=== PATIENT | male | born 1950 | race Caucasian/White ===

== ENCOUNTER 2016-04-09 17:17 | Emergency (ER) | payer MEDICARE ==
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
[2016-04-09 19:37] VITALS: BP 164/94
== END 2016-04-09 19:36 | disposition home or self-care (01) ==
LOC: ED 17:17
DX: S01.81XA Laceration without foreign body of other part of head, initial encounter (principal); F10.129 Alcohol abuse with intoxication, unspecified; Y09 Assault by unspecified means; Y92.9 Unspecified place or not applicable; Y99.9 Unspecified external cause status; Z86.73 Personal history of transient ischemic attack (TIA), and cerebral infarction without residual deficits; F17.210 Nicotine dependence, cigarettes, uncomplicated
CPT/HCPCS: 99282

== ENCOUNTER 2016-05-12 08:35 | Observation (INO) | payer MEDICARE ==
[2016-05-12] MEDS ORDERED: Metoclopramide IV* 5 MG/ML 2 ML VIAL IV ONE (09:12)
[2016-05-12] MEDS ORDERED: Pantoprazole IV* 40 MG IV ONE (09:12)
[2016-05-12] MEDS ORDERED: Morphine INJ* 4 MG/ML 1 ML CARPUJECT IV ONE (09:12)
[2016-05-12] MEDS ORDERED: NS 0.9% 1000 ML* 2,000 ML IV ONE ×2 (09:12→11:50)
[2016-05-12] MEDS ORDERED: Magnesium Sulfate 2 GM IV* 2 GM/50 ML BAG IV ONE (09:14)
[2016-05-12] MEDS ORDERED: Thiamine IV* 100 MG, Folic Acid IV* 1 MG, Multiple Vitamin IV ADULT* 10 ML in NS 0.9% 1... IV ONE (09:15)
[2016-05-12] MEDS ORDERED: LORazepam INJ* 2 MG/ML 1 ML VIAL IV PUSH ONE (09:16)
[2016-05-12 09:45] LABS: Urine Bacteria Absent (Absent); Urine Bilirubin Negative (Negative); Urine Glucose Negative (Negative); Urine Nitrite Negative (Negative)
[2016-05-12 09:52] LABS: Hematocrit 44 % (42-52); Hemoglobin 14.6 g/dl (14.0-18.0); Mean Corpuscular HGB Conc 34 g/dl (31-36); Mean Corpuscular Hemoglobin 33 pg (27-31); Mean Corpuscular Volume 99 fL (80-94); Mean Platelet Volume 10 um3 (7.4-10.4); Red Blood Count 4.42 10^6/ul (4.0-5.4); Red Cell Distribution Width 14 % (10.5-15); White Blood Count 14.5 10^3/ul (3.5-10.8)
[2016-05-12 10:08] LABS: ALT 12 U/L (7-52); AST 27 U/L (13-39); Albumin 4.3 g/dL (3.2-5.2); Alkaline Phosphatase 106 U/L (34-104); Amylase 21 U/L (29-103); Anion Gap 17 mmol/L (2-11); BUN/Creatinine Ratio 20.2 (8-20); Blood Urea Nitrogen 18 mg/dL (6-24); C Reactive Protein 1.59 mg/L (< 5.00); CO2 Carbon Dioxide 18 mmol/L (22-32); Chloride 100 mmol/L (101-111); EGFR African American 109.3 (>60); Globulin 2.9 g/dL (2-4); Glucose 95 mg/dL (70-100); Lipase 10 U/L (11.0-82.0); Magnesium 1.6 mg/dL (1.9-2.7); Sodium 135 mmol/L (133-145); Total Protein 7.2 g/dL (6.4-8.9)
[2016-05-12 10:16] LABS: Benzodiazepine Urine Screen None Detected (None Detect)
[2016-05-12 10:41] LABS: Alcohol < 10 mg/dL (<10)
[2016-05-12] MEDS ORDERED: chlordiazePOXIDE CAP* 25 MG PO ONE (11:47)
[2016-05-12] MEDS ORDERED: Diazepam TAB(*) 5 MG PO PRN (11:47)
[2016-05-12] MEDS ORDERED: Ondansetron INJ* 2 MG/ML VIAL IV PRN (11:49)
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
[2016-05-12] MEDS: Gabapentin CAP(*) 300 MG PO SCH ×2 (12:59→20:10)
[2016-05-12] MEDS: Diltiazem CD CAP* 240 MG PO SCH (13:00)
[2016-05-12] MEDS: Heparin VIAL(*) 5000 UNITS/ML VIAL (FIVE THOUSAND) SUBCUT SCH ×2 (13:01→20:11)
--- NOTE | 2016-05-12 13:44 | HP ---
ADMISSION HISTORY AND PHYSICAL: DATE OF ADMISSION: 05/12/16 PRIMARY CARE PROVIDER: RAYO Dykes [facility] PROXY: Evelyn, his partner. CODE STATUS: Full. SOURCE OF INFORMATION: History obtained from interview with the patient and review of past medical history. RELIABILITY: Poor. CHIEF COMPLAINT: Nausea and vomiting. HISTORY OF PRESENT ILLNESS: This is a 66-year-old man with past medical history of alcohol abuse, multiple hospitalizations for alcohol withdrawal, who noticed he was last drinking 6 months prior, stopped without any rehab, and started drinking 3 days again prior to presentation, about a bottle of wine, bottle of peppermint schnapps, and beer per day. His last drink was the day prior to admission. This morning woke up, had nausea and vomiting x2 which was dry heaving associated with palpitations, diaphoresis, and tremors. Noticed decreased appetite over the last 3 days, cannot remember the last thing he eats. He had a fall several days prior, he cannot remember when, with head strike. He noted pain in his stomach and generalized malaise and a worsening headache; therefore, presented to the emergency room. He feels like this was like when he stopped drinking in the past; however, more severe. He denies any previous history of seizures or need for intubations with alcohol withdrawal. When seen by this author, he feels much "improved" since presentation. REVIEW OF SYSTEMS: As per HPI, otherwise all other systems are negative. PAST MEDICAL HISTORY: Alcohol abuse, hypothyroidism, hypertension, anxiety, depression, atrial fibrillation in the setting of detoxification in 2003, history of exploratory laparotomy with findings of gangrenous small bowel related to an internal hernia with total resection of approximately 30 inches of small bowel with primary anastomosis, Dr. Hotron, August 2015. SOCIAL HISTORY: Extensive alcohol, currently one bottle of wine, bottle of peach schnapps and additional beer. Tobacco use, 10 cigarettes a day approximately 40 to 50 years. History of marijuana and cocaine, notes last cocaine several years prior. FAMILY HISTORY: Father and mother with both alcohol abuse. Mother with CAD. ALLERGIES: No known drug allergies. MEDICATIONS: Medications from [place], alprazolam 0.5 mg at bedtime as needed, diltiazem 240 mg every day, folic acid 1 tablet daily, gabapentin 1200 mg 3 times a day, metoprolol succinate 25 mg daily, multivitamin 1 tablet daily, thiamine 100 mg daily. PHYSICAL EXAMINATION VITAL SIGNS: When seen by this author, 162/92, heart rate 91, respiratory rate of 16, 97% on room air. T-max in the emergency room 98.6. GENERAL: Sitting in bed, interactive, pleasant, in no apparent distress. HEENT: Oropharynx is clear. Poor dentition. Moist mucous membranes. Sclerae are anicteric. NECK: Non-elevated JVD. No lymphadenopathy. HEART: S1, S2 with accentuated P2. No murmurs, rubs or gallops. LUNGS: Clear to auscultation. ABDOMEN: Soft, nontender, nondistended. EXTREMITIES: Warm and well perfused without clubbing, cyanosis or edema. SKIN: No notable skin lacerations, wounds, or breakdown. NEUROLOGIC: He is alert and oriented x3. His cranial nerves are intact. LABORATORY DATA: Labs reviewed, notable for lactic acidosis 6.3, white blood cell count 14.5, hemoglobin 14.6, platelets 158. Urine is positive for cannabinoids and negative for alcohol. Data reviewed, chest x-ray pending. ASSESSMENT AND PLAN: This is a 66-year-old man, past medical history of alcohol abuse and multiple detoxifications, returning with nausea and vomiting, palpitations, diaphoresis, and tremors in the setting of stopping heavy drinking. Lactic acidosis, suspicious in the setting of alcohol abuse. Receiving normal saline at this time, bolused 2 additional liters, recheck for resolution. Alcohol withdrawal, suspect etiology of palpitations, diaphoresis and tremors as well as headache. Dosed Librium 50 mg oral now and start WAM protocol with p.o. diazepam. Folic acid and thiamine. Fluids indicated above. Hypertension. Restart diltiazem now, metoprolol to start tomorrow, adjust as necessary. History of atrial fibrillation, currently in normal sinus rhythm. No need for telemetry, only in the setting of withdrawal in 2014, not on anticoagulation, additionally contraindicated in the setting of falls. Recent fall at home with head strike, then headache, check CT head noncontrast. Leukocytosis, suspect in the setting of alcohol abuse, although check chest x- ray PA and lateral in the setting of symptomatology as well as elevated leukocyte esterase. DVT prophylaxis, heparin subcu. CC: RAYO Dykes, at the [facility].* [id number]/CPS #: [id number] [facility]OS[facility]ITALKenyatta
--- NOTE | 2016-05-12 14:27 | RAD ---
HISTORY: Fall, headache COMPARISONS: October 16, 2013 TECHNIQUE: Multiple contiguous axial CT scans were obtained of the head without intravenous contrast. FINDINGS: HEMORRHAGE/INFARCT: There is no hemorrhage or acute infarct. MASSES/SHIFT: There is no mass or shift. EXTRA-AXIAL SPACES: There are no extra-axial fluid collections. SULCI AND VENTRICLES: The sulci and ventricles are normal in size and position for the patient's stated age. CEREBRUM: There is stable right frontal encephalomalacia. BRAINSTEM: There are no focal parenchymal abnormalities. CEREBELLUM: There are no focal parenchymal abnormalities. VESSELS: The vessels are grossly normal. PARANASAL SINUSES: The paranasal sinuses are clear. ORBITS: The orbits are unremarkable. BONES AND SOFT TISSUE: There is postsurgical change to the right frontal skull OTHER: None IMPRESSION: NO ACUTE INTRACRANIAL PATHOLOGY.
[2016-05-12] MEDS ORDERED: Acetaminophen TAB* 325 MG PO PRN (21:45)
[2016-05-13] MEDS: Heparin VIAL(*) 5000 UNITS/ML VIAL (FIVE THOUSAND) SUBCUT SCH (06:05)
[2016-05-13 06:44] LABS: Hematocrit 40 % (42-52); Hemoglobin 13.4 g/dl (14.0-18.0); Mean Corpuscular HGB Conc 34 g/dl (31-36); Mean Corpuscular Hemoglobin 34 pg (27-31); Mean Corpuscular Volume 99 fL (80-94); Mean Platelet Volume 10 um3 (7.4-10.4); Red Blood Count 3.99 10^6/ul (4.0-5.4); Red Cell Distribution Width 14 % (10.5-15); White Blood Count 8.5 10^3/ul (3.5-10.8)
[2016-05-13 06:56] LABS: BUN/Creatinine Ratio 18.8 (8-20); Calcium 8.9 mg/dL (8.6-10.3); EGFR African American 100.2 (>60); EGFR Non-African American 77.9 (>60); Potassium 3.7 mmol/L (3.5-5.0)
[2016-05-13] MEDS: Gabapentin CAP(*) 300 MG PO SCH (07:53)
[2016-05-13] MEDS: Diltiazem CD CAP* 240 MG PO SCH (07:53)
[2016-05-13] MEDS ORDERED: Thiamine TAB* 100 MG TAB PO SCH (09:00)
[2016-05-13] MEDS ORDERED: Multivitamins/Minerals TAB PO SCH (09:00)
[2016-05-13] MEDS ORDERED: Metoprolol Succinate XL TAB* 25 MG PO SCH (09:00)
[2016-05-13] MEDS ORDERED: Folic Acid TAB* 1 MG PO SCH (09:00)
[2016-05-13 09:12] VITALS: BP 132/89
--- NOTE | 2016-05-13 09:22 | DS ---
DISCHARGE SUMMARY: DATE OF ADMISSION: 05/12/16. DATE OF DISCHARGE: 05/13/16. PRIMARY CARE PROVIDER: RAYO Dykes. PRIMARY DIAGNOSES: 1. Lactic acidosis. 2. Alcohol withdrawal. SECONDARY DIAGNOSES: Include: 1. Hypothyroidism. 2. Hypertension. 3. Anxiety. 4. Depression. 5. Peripheral neuropathy. 6. History of atrial fibrillation in the setting of detoxification or alcohol withdrawal. MEDICATIONS ON DISCHARGE: Unchanged from admission. Medication list received from Kristine Hess's office include: 1. Acetaminophen 650 mg every 4 hours as needed for pain or fever. 2. Thiamin 100 mg daily. 3. Multivitamin one tablet daily. 4. Metoprolol succinate 25 mg daily. 5. Gabapentin 1200 mg three times a day. 6. Folic acid 1 mg daily. 7. Diltiazem ER 240 mg daily. 8. Alprazolam 25 mg at bedtime as needed. PERTINENT IMAGING: Brain CT - no acute intracranial pathology. PERTINENT LABORATORY DATA: Lactic acid on presentation 6.3, decreased to 2.4 with volume resuscitation. HISTORY OF PRESENT ILLNESS AND HOSPITAL COURSE: This is a 66-year-old male with a past medical history as outlined in the history of present illness on the day of admission including alcohol abuse and multiple admissions for alcohol withdrawal, presented with symptoms of alcohol withdrawal including nausea, vomiting, tremulousness, palpitations, diaphoresis. He received Ativan in the emergency room as well as Zofran with improvement in his symptoms. He was noted to have lactic acidosis, suspected in the setting of his alcohol use. He was treated with normal saline with resolution of the lactic acidosis. He received Librium in the emergency room and no additional benzodiazepines except for the initial Ativan he received in the emergency room before the day of discharge. His nausea, vomiting resolved; he tolerated a meatloaf dinner on the night prior to discharge. Additionally, he reported a headache in the setting of alcohol withdrawal as well as a fall several days prior. For this reason, he had a CAT scan performed which did not indicate any intracranial pathology in the absence of a bleed. On the day of discharge, the patient felt well. Declining any rehabilitation services as an outpatient. He was counseled at length about alcohol abstinence. There are no complications in the patient's hospital stay. FOLLOWUP INSTRUCTIONS: On followup, please: 1. Evaluate for blood pressure control. 2. Please evaluate for continued alcohol abstinence. 3. No other specific labs or vitals that need followup. Reasons to return to the hospital include, but not limited to recurrent or worsening symptoms including chest pain, shortness of breath, nausea, vomiting, lightheadedness, headache, loss of consciousness, near loss of consciousness, bleeding from any source, inability to obtain or tolerate medications discussed with the patient. He acknowledged understanding. TIME SPENT: Greater than 30 minutes were spent on discharge of this patient with greater than half spent [id number] with the patient. CC: RAYO Dykes at the [place]. * [id number]/[facility] #: [id number] [id number]
== END 2016-05-13 10:10 | disposition home or self-care (01) ==
LOC: ED 08:35 → MED 11:44
PROVIDERS: ADMIT Internal Medicine; ATTEND Internal Medicine
DX: E87.2 Acidosis (principal); F10.239 Alcohol dependence with withdrawal, unspecified; E03.9 Hypothyroidism, unspecified; I10 Essential (primary) hypertension; F32.9 Major depressive disorder, single episode, unspecified; F41.9 Anxiety disorder, unspecified; G62.9 Polyneuropathy, unspecified; R51 Headache; Z91.81 History of falling; Z90.49 Acquired absence of other specified parts of digestive tract; Z98.0 Intestinal bypass and anastomosis status; F17.210 Nicotine dependence, cigarettes, uncomplicated; Z86.73 Personal history of transient ischemic attack (TIA), and cerebral infarction without residual deficits; F43.10 Post-traumatic stress disorder, unspecified
CPT/HCPCS: 36415; 70450; 80048; 80053; 80307; 80320; 81003; 81015; 82150; 83605; 83690; 83735; 85025; 85610; 86140; 93005; 96365; 96366; 99284; A9270-GY; G0378; G0480; J1644; J2060; J2405; J2765; J3411; J3475

== ENCOUNTER 2016-06-11 13:57 | Inpatient (IN) | payer MEDICARE ==
[2016-06-11] MEDS ORDERED: Thiamine IV* 100 MG, Folic Acid IV* 1 MG, Multiple Vitamin IV ADULT* 10 ML, Magnesium S... IV ONE ×5 (14:33)
[2016-06-11 15:00] LABS: Hematocrit 50 % (42-52); Mean Corpuscular HGB Conc 34 g/dl (31-36); Mean Corpuscular Hemoglobin 34 pg (27-31); Mean Corpuscular Volume 99 fL (80-94); Mean Platelet Volume 9 um3 (7.4-10.4); Red Blood Count 5.06 10^6/ul (4.0-5.4); Red Cell Distribution Width 14 % (10.5-15); White Blood Count 10.7 10^3/ul (3.5-10.8)
[2016-06-11 15:15] LABS: ALT 16 U/L (7-52); AST 29 U/L (13-39); Albumin 4.6 g/dL (3.2-5.2); Alkaline Phosphatase 109 U/L (34-104); BUN/Creatinine Ratio 11.6 (8-20); Blood Urea Nitrogen 10 mg/dL (6-24); CO2 Carbon Dioxide 28 mmol/L (22-32); Calcium 9.5 mg/dL (8.6-10.3); EGFR African American 113.7 (>60); EGFR Non-African American 88.4 (>60); Globulin 3.2 g/dL (2-4); Glucose 91 mg/dL (70-100); Total Protein 7.8 g/dL (6.4-8.9)
[2016-06-11 15:32] LABS: Anion Gap 11 mmol/L (2-11); Chloride 101 mmol/L (101-111); Potassium 4.1 mmol/L (3.5-5.0); Sodium 140 mmol/L (133-145)
[2016-06-11 15:45] LABS: Acetaminophen < 15 mcg/mL; Alcohol 275 mg/dL (<10); Salicylate < 2.50 mg/dL (<30)
[2016-06-11 15:55] LABS: TSH (Thyroid Stimulating Horm) 1.52 mcIU/mL (0.34-5.60)
[2016-06-11] MEDS ORDERED: Ondansetron INJ* 2 MG/ML VIAL IV ONE (16:04)
[2016-06-11] MEDS ORDERED: Diltiazem IV* 5 MG/ML 5 ML VIAL (for loading dose/IV Push) (25 MG) IV SLOW PU ONE (16:11)
[2016-06-11] MEDS ORDERED: Diltiazem IV VIAL* 125 MG in D5W 100 ML BAG* 100 ML IV ONE (16:11)
[2016-06-11] MEDS ORDERED: PROCHLORPERAZINE INJ 5 MG/ML 2 ML VIAL IV PRN (17:02)
[2016-06-11] MEDS ORDERED: Acetaminophen TAB* 325 MG PO PRN (17:02)
[2016-06-11 17:30] LABS: Troponin I 0.02 ng/mL (<0.04)
[2016-06-11] MEDS: LORazepam INJ* 2 MG/ML 1 ML VIAL IV SCH (17:37)
[2016-06-11] MEDS ORDERED: Diltiazem IV VIAL* 125 MG in D5W 100 ML BAG* 100 ML IV SCH ×2 (18:00→18:53)
[2016-06-11] MEDS: LORazepam TAB(*) 1 MG PO SCH (18:36)
[2016-06-11] MEDS: NS 0.9% 1000 ML* 1,000 ML IV SCH (19:21)
[2016-06-11] MEDS: Diltiazem IV VIAL* 125 MG in D5W 100 ML BAG* 100 ML IV SCH (19:23)
--- NOTE | 2016-06-11 19:30 | HP ---
CC: Kristine Hess NP, at the [place] HISTORY AND PHYSICAL: DATE OF ADMISSION: 06/11/16 TIME OF EVALUATION: 4:45 p.m. PRIMARY CARE PROVIDER: Kristine Hess NP, at the [place]. CHIEF COMPLAINT: "I need help." HISTORY OF PRESENT ILLNESS: Mr. Brown is a 66-year-old male with a past medical history of alcoh ol abuse, hypothyroidism, hypertension, anxiety, depression, paroxysmal atrial fibrillation who pres ented to the emergency room brought in by EMS requesting detox. The patient states that he is not able to stop drinking and he knows that he needs help, so today, jess catalan drank half a bottle of peach schnapps and then called 911 to come to the emergency room. In the e mergency room, he is able to state that he is currently intoxicated and that he needs help. Throughout his stay in the emergency room, the patient started to complain of palpitations and he wa s found to have developed atrial fibrillation with a rapid ventricular rate with heart rate of 150. He denies chest pain at this time, but he states that he is very anxious and scared of dying if he goes home. He states that he knows he needs to stop drinking, but he always fails. PAST MEDICAL HISTORY: 1. Alcohol abuse. 2. Hypothyroidism. 3. Hypertension. 4. Anxiety. 5. Depression. 6. Paroxysmal atrial fibrillation. 7. Status post exploratory laparotomy with findings of gangrenous small bowel associated with a her haley, requiring 30 inches of resection of small bowel with primary anastomosis in August 2015. MEDICATIONS: 1. Acetaminophen 650 mg p.o. q.4 hours p.r.n. pain or fever. 2. Alprazolam 0.5 mg p.o. at bedtime as needed for anxiety. 3. Cardizem CD 240 mg p.o. daily. 4. Folic acid 1 mg p.o. daily. 5. Gabapentin 1200 mg p.o. t.i.d. 6. Metoprolol succinate 25 mg p.o. daily. 7. Multivitamin 1 tablet p.o. daily. 8. Thiamine 100 mg p.o. daily. The patient states that he is not compliant with his medications and he does not even remember when was the last time he took them all. ALLERGIES: No known drug allergies. FAMILY HISTORY: Father and mother had a history of alcohol abuse. His mother also had coronary art camille disease. SOCIAL HISTORY: The patient has an extensive history of alcohol abuse. He drinks wine, beer, but h is drink of choice is peach schnapps. Although he states that he does not drink daily, he states th at he drinks "most of the days of the week." He is also a smoker, half a pack a day, for 50 years. He also states that he smokes marijuana, but denies any recent use of cocaine or heroin. Surrogate decision maker is his partner, Evelyn Landeros, phone number [phone]. REVIEW OF SYSTEMS: It is limited because the patient still is intoxicated, but as far as I can ques tion him, all of the pertinent positive and negative findings are in the HPI. PHYSICAL EXAMINATION GENERAL: The patient is an elderly male that appears older than stated age, lying in the ER stretch er in no acute distress, but anxious. VITAL SIGNS: Temperature 99.2, heart rate is 139, respiratory rate is 15, oxygen saturation is 99% on room air, blood pressure is 130/79. HEENT: Pupils are equal. Moist mucous membranes. Very poor dentition. CHEST: Breath sounds present bilaterally with no added sounds. CVS: Normal S1, S2. Irregularly irregular. Tachycardic. ABDOMEN: Soft, nontender, nondistended. Bowel sounds present. EXTREMITIES: No edema. NEUROLOGIC: He is alert and oriented x3. Able to move all 4 extremities. LABORATORY AND IMAGING DATA: The patient had a CBC that showed WBC of 10.7, hemoglobin of 17, hammad tocrit of 50, platelets of 181, 72% neutrophils. Chemistry showed a sodium of 140, potassium 4.1, c hloride of 101, bicarb of 28, BUN of 10, creatinine of 0.86, glucose of 91, calcium of 9.5. LFTs ar e normal. TSH is 1.5. Salicylates and acetaminophen are negative and alcohol level is 275. An EKG done on June 11 at 1608 showed atrial fibrillation with heart rate of [address] depressi ons in V4, V5, and V6. This is a change when compared to his prior EKG from 05/01/16. At that time , he was in sinus rhythm. ASSESSMENT AND PLAN: Mr. Brown is a 66-year-old male with a past medical history of alcohol abus e, hypothyroidism, hypertension, anxiety, depression, paroxysmal atrial fibrillation who presents to the emergency room requesting detox and developed atrial fibrillation with rapid ventricular rate. 1. Alcohol withdrawal: Although the patient's alcohol level on ER arrival was 275, the patient sta rted to show signs of withdrawal now with tachycardia and anxiety. He states that he had seizures i n the past when he went through withdrawal, so he will be on a WAM protocol and also on an Ativan ta per. When he is more stable, we are going to request a social work evaluation to help him with detox opti ons. He states that he went to a rehab facility in the [facility] 2 years ago. The patient is g oing to receive thiamine, folate, and multivitamins. 2. Atrial fibrillation with rapid ventricular rate: The patient had episodes in the past and he re cognizes that he is not compliant with his medications. He is going to be admitted to the telemetry floor. He was already started on a Cardizem drip. Pota ssium and TSH are normal. Anticoagulation is contraindicated in the case of this patient with noncompliance and significant al cohol abuse. I think the best plan for him at this time is rate control. 4. Hypertension: Blood pressure is controlled at this time. He is going to be on a Cardizem drip. I am going to continue his metoprolol. 5. DVT prophylaxis: The patient has a score of 2 on DVT Prophylaxis Risk Assessment Guide. He brendan l be started on subcutaneous heparin. 6. Code status is full. TIME SPENT: Approximately 60 minutes were spent with the patient interview, medical records review, physical examination to complete this admission, more than half this time was spent [id number] wi th the patient in coordination of care. [id number]/[facility] #: [id number]
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
[2016-06-11] MEDS: Gabapentin CAP(*) 300 MG PO SCH (20:22)
[2016-06-11] MEDS: Heparin VIAL(*) 5000 UNITS/ML VIAL (FIVE THOUSAND) SUBCUT SCH (21:38)
[2016-06-12] MEDS: LORazepam INJ* 2 MG/ML 1 ML VIAL IV SCH ×3 (01:19→20:33)
[2016-06-12] MEDS: Diltiazem IV VIAL* 125 MG in D5W 100 ML BAG* 100 ML IV SCH (03:32)
[2016-06-12] MEDS: NS 0.9% 1000 ML* 1,000 ML IV SCH ×2 (05:29→15:24)
[2016-06-12] MEDS: Heparin VIAL(*) 5000 UNITS/ML VIAL (FIVE THOUSAND) SUBCUT SCH ×3 (05:29→23:26)
[2016-06-12 06:10] LABS: Hematocrit 40 % (42-52); Hemoglobin 13.8 g/dl (14.0-18.0); Mean Corpuscular HGB Conc 34 g/dl (31-36); Mean Corpuscular Hemoglobin 34 pg (27-31); Mean Corpuscular Volume 99 fL (80-94); Mean Platelet Volume 9 um3 (7.4-10.4); Red Blood Count 4.05 10^6/ul (4.0-5.4); Red Cell Distribution Width 14 % (10.5-15); White Blood Count 9.7 10^3/ul (3.5-10.8)
[2016-06-12 06:24] LABS: BUN/Creatinine Ratio 16.1 (8-20); Calcium 8.7 mg/dL (8.6-10.3); EGFR African American 112.2 (>60); EGFR Non-African American 87.3 (>60); Potassium 3.8 mmol/L (3.5-5.0)
[2016-06-12] MEDS: LORazepam TAB(*) 1 MG PO SCH (08:16)
[2016-06-12] MEDS: Multivitamins/Minerals TAB PO SCH (08:16)
[2016-06-12] MEDS: Folic Acid TAB* 1 MG PO SCH (08:16)
[2016-06-12] MEDS: Metoprolol Succinate XL TAB* 25 MG PO SCH (08:16)
[2016-06-12] MEDS: Diltiazem CD CAP* 240 MG PO SCH ×2 (08:17→08:18)
[2016-06-12] MEDS: Thiamine TAB* 100 MG TAB PO SCH (08:17)
[2016-06-12] MEDS: Gabapentin CAP(*) 300 MG PO SCH ×3 (08:17→20:33)
[2016-06-12] MEDS ORDERED: Diltiazem IV VIAL* 125 MG in D5W 100 ML BAG* 100 ML IV SCH ×2 (08:50→09:20)
[2016-06-12] MEDS ORDERED: Thiamine TAB* 100 MG TAB PO SCH (09:00)
--- NOTE | 2016-06-12 13:49 | PN ---
Subjective Date of Service: 06/12/16 Interval History: HOSPITALIST PROGRESS NOTE Patient seen and examined at bedside. He feels better today, chest pressure is resolved. Less anxious this AM. Family History: Unchanged from Admission Social History: Unchanged from Admission Past Medical History: Unchanged from Admission Objective Active Medications: Acetaminophen (Tylenol Tab*) 650 mg PO Q6H PRN PRN Reason: pain/fever Diltiazem HCl (Cardizem Cd Cap*) 240 mg PO DAILY [facility] Last Admin: 06/12/16 08:18 Dose: Not Given Folic Acid (Folvite Tab*) 1 mg PO DAILY [facility] Last Admin: 06/12/16 08:16 Dose: 1 mg Gabapentin (Neurontin Cap(*)) 1,200 mg PO TID [facility] Last Admin: 06/12/16 08:17 Dose: 1,200 mg Heparin Sodium (Porcine) (Heparin Vial(*)) 5,000 units SUBCUT Q8HR [facility] Last Admin: 06/12/16 05:29 Dose: 5,000 units Sodium Chloride (Ns 0.9% 1000 Ml*) 1,000 mls @ 100 mls/hr IV PER RATE [facility] Last Admin: 06/12/16 05:29 Dose: 100 mls/hr Lorazepam (Ativan Inj*) 1 mg IV Q12H [facility] PRN Reason: Taper Stop: 06/14/16 12:59 Last Admin: 06/12/16 09:32 Dose: 1 mg Lorazepam (Ativan Tab(*)) 0 mg PO .PER WAM SCORE [facility] PRN Reason: Protocol Last Admin: 06/12/16 08:16 Dose: 2 mg Metoprolol Succinate (Toprol Xl Tab*) 25 mg PO DAILY [facility] Last Admin: 06/12/16 08:16 Dose: 25 mg Multivitamins/Minerals (Theragran/Minerals Tab*) 1 tab PO DAILY [facility] Last Admin: 06/12/16 08:16 Dose: 1 tab Prochlorperazine Edisylate (Compazine Inj*) 5 mg IV Q6H PRN PRN Reason: NAUSEA/VOMITING Thiamine HCl (Vitamin B-1 Tab*) 100 mg PO DAILY [facility] Last Admin: 06/12/16 08:17 Dose: 100 mg Vital Signs 06/12/16 06/12/16 06/12/16 11:00 11:35 12:00 Pulse Rate 63 68 84 Respiratory 18 19 22 Rate Blood Pressure 143/82 137/89 (mmHg) O2 Sat by Pulse 96 96 94 Oximetry Oxygen Devices in Use Now: None Appearance: Elderly male lying in bed in NAD. Eyes: No Scleral Icterus Ears/Nose/Mouth/Throat: Mucous Membranes Moist Neck: Trachea Midline Respiratory: Symmetrical Chest Expansion and Respiratory Effort, Clear to Auscultation Cardiovascular: - - Normal S1 and S2, irregularly irregular Abdominal: NL Sounds; No Tenderness; No Distention Extremities: No Edema Neurological: Alert and Oriented x 3, NL Muscle Strength and Tone Lines/Tubes/Other Access: Clean, Dry and Intact Peripheral IV Nutrition: Taking PO's Result Diagrams: 06/12/16 05:38 06/12/16 05:38 Assess/Plan/Problems-Billing Assessment: Mr. Brown is a 66yo M with PMH of ETOH abuse, hypothyroidism, HTN, anxiety, depression, paroxysmal Afib, who presented to ED requesting detox and developed Afib with RVR. - Patient Problems (1) Atrial fibrillation with RVR Comment: - Converted back to NSR earlier today. - Continue PO Cardizem and Metoprolol. (2) Alcohol withdrawal Comment: - Continue WAM protocol. (3) Hypertension Comment: - Controlled. - Continue diltiazem and metoprolol. (4) DVT prophylaxis Comment: - SQ heparin. (5) Full code status Status and Disposition: Inpatient.
[2016-06-13] MEDS: NS 0.9% 1000 ML* 1,000 ML IV SCH (02:46)
[2016-06-13] MEDS: Heparin VIAL(*) 5000 UNITS/ML VIAL (FIVE THOUSAND) SUBCUT SCH ×3 (05:22→22:03)
[2016-06-13] MEDS: Thiamine TAB* 100 MG TAB PO SCH (07:56)
[2016-06-13] MEDS: Multivitamins/Minerals TAB PO SCH (07:56)
[2016-06-13] MEDS: Folic Acid TAB* 1 MG PO SCH (07:56)
[2016-06-13] MEDS: Diltiazem CD CAP* 240 MG PO SCH (07:57)
[2016-06-13] MEDS: Metoprolol Succinate XL TAB* 25 MG PO SCH (07:57)
[2016-06-13] MEDS: Gabapentin CAP(*) 300 MG PO SCH ×3 (07:57→20:46)
[2016-06-13] MEDS: LORazepam INJ* 2 MG/ML 1 ML VIAL IV SCH ×2 (08:15→20:46)
--- NOTE | 2016-06-13 15:33 | PN ---
Subjective Date of Service: 06/13/16 Interval History: HOSPITALIST PROGRESS NOTE Patient seen and examined at bedside. He feels better today. Chest pressure is resolved, denies dyspnea. Family History: Unchanged from Admission Social History: Unchanged from Admission Past Medical History: Unchanged from Admission Objective Active Medications: Acetaminophen (Tylenol Tab*) 650 mg PO Q6H PRN PRN Reason: pain/fever Last Admin: 06/12/16 20:39 Dose: 650 mg Diltiazem HCl (Cardizem Cd Cap*) 240 mg PO DAILY [facility] Last Admin: 06/13/16 07:57 Dose: 240 mg Folic Acid (Folvite Tab*) 1 mg PO DAILY [facility] Last Admin: 06/13/16 07:56 Dose: 1 mg Gabapentin (Neurontin Cap(*)) 1,200 mg PO TID [facility] Last Admin: 06/13/16 13:50 Dose: 1,200 mg Heparin Sodium (Porcine) (Heparin Vial(*)) 5,000 units SUBCUT Q8HR [facility] Last Admin: 06/13/16 13:48 Dose: 5,000 units Lorazepam (Ativan Inj*) 1 mg IV Q12H [facility] PRN Reason: Taper Stop: 06/14/16 12:59 Last Admin: 06/13/16 08:15 Dose: 1 mg Lorazepam (Ativan Tab(*)) 0 mg PO .PER WAM SCORE [facility] PRN Reason: Protocol Last Admin: 06/12/16 08:16 Dose: 2 mg Metoprolol Succinate (Toprol Xl Tab*) 25 mg PO DAILY [facility] Last Admin: 06/13/16 07:57 Dose: 25 mg Multivitamins/Minerals (Theragran/Minerals Tab*) 1 tab PO DAILY [facility] Last Admin: 06/13/16 07:56 Dose: 1 tab Prochlorperazine Edisylate (Compazine Inj*) 5 mg IV Q6H PRN PRN Reason: NAUSEA/VOMITING Thiamine HCl (Vitamin B-1 Tab*) 100 mg PO DAILY [facility] Last Admin: 06/13/16 07:56 Dose: 100 mg Vital Signs 06/13/16 06/13/16 06/13/16 08:15 09:15 11:08 Temperature 98.6 F Pulse Rate 72 Respiratory 18 20 18 Rate Blood Pressure 133/76 (mmHg) O2 Sat by Pulse 99 Oximetry Oxygen Devices in Use Now: None Appearance: Elderly male lying in bed in NAD. Eyes: No Scleral Icterus Ears/Nose/Mouth/Throat: Mucous Membranes Moist Neck: Trachea Midline Respiratory: Symmetrical Chest Expansion and Respiratory Effort, Clear to Auscultation Cardiovascular: RRR - Normal S1 and S2 Abdominal: NL Sounds; No Tenderness; No Distention Extremities: No Edema Neurological: Alert and Oriented x 3, NL Muscle Strength and Tone Lines/Tubes/Other Access: Clean, Dry and Intact Peripheral IV Nutrition: Taking PO's Result Diagrams: 06/12/16 05:38 06/12/16 05:38 Assess/Plan/Problems-Billing Assessment: Mr. Brown is a 66yo M with PMH of ETOH abuse, hypothyroidism, HTN, anxiety, depression, paroxysmal Afib, who presented to ED requesting detox and developed Afib with RVR. - Patient Problems (1) Atrial fibrillation with RVR Comment: - Converted back to NSR. - Continue PO Cardizem and Metoprolol. - Encourage ambulation. (2) Alcohol withdrawal Comment: - Continue WAM protocol but has not scored high enough to receive Ativan. - Not interested in inpatient rehab, but willing to talk to about outpatient resources. (3) Hypertension Comment: - Controlled. - Continue diltiazem and metoprolol. (4) DVT prophylaxis Comment: - SQ heparin. (5) Full code status Status and Disposition: Inpatient. Anticipate d/c in AM.
[2016-06-14] MEDS: Heparin VIAL(*) 5000 UNITS/ML VIAL (FIVE THOUSAND) SUBCUT SCH (05:32)
[2016-06-14 08:45] VITALS: BP 142/88
[2016-06-14] MEDS: Metoprolol Succinate XL TAB* 25 MG PO SCH (09:05)
[2016-06-14] MEDS: Multivitamins/Minerals TAB PO SCH (09:05)
[2016-06-14] MEDS: Diltiazem CD CAP* 240 MG PO SCH (09:05)
[2016-06-14] MEDS: Folic Acid TAB* 1 MG PO SCH (09:05)
[2016-06-14] MEDS: Gabapentin CAP(*) 300 MG PO SCH (09:05)
[2016-06-14] MEDS: Thiamine TAB* 100 MG TAB PO SCH (09:05)
--- NOTE | 2016-06-15 02:00 | DS ---
DISCHARGE SUMMARY: DATE OF ADMISSION: 06/12/16 DATE OF DISCHARGE: 06/14/16 PRIMARY CARE PROVIDER: Kristine Hess NP, at the [facility]. DISCHARGE DIAGNOSES: 1. Alcohol withdrawal. 2. Atrial fibrillation with rapid ventricular rate. SECONDARY DIAGNOSES: 1. Alcohol abuse. 2. Hypothyroidism. 3. Hypertension. 4. Anxiety. 5. Depression. 6. Paroxysmal atrial fibrillation. 7. Status post exploratory laparotomy with findings of gangrenous small bowel associated with hernia, requiring 30 inches of small bowel resection with primary anastomosis in August 2015. 8. Tobacco abuse. MEDICATION LIST: 1. Acetaminophen 650 mg p.o. q.4 hours p.r.n. pain or fever. 2. Alprazolam 0.5 mg p.o. at bedtime as needed for anxiety. 3. Cardizem CD 240 mg p.o. daily. 4. Folic acid 1 mg p.o. daily. 5. Gabapentin 1200 mg p.o. t.i.d. 6. Metoprolol succinate 25 mg p.o. daily. 7. Multivitamin 1 tablet p.o. daily. 8. Thiamine 100 mg p.o. daily. HOSPITAL COURSE: Mr. Brown is a 66-year-old male with past medical history as stated above that presented to the emergency room on 06/12/16 requesting detox and he was found to be in atrial fibrillation with rapid ventricular rate. For more details about his presentation, I refer you to his history and physical. The patient is very clear that he is noncompliant with his medications at home, especially on the days that he drinks more. The patient was admitted to telemetry floor, started on a Cardizem drip, and later on he converted to sinus rhythm. He was on a WAM protocol while in the hospital and also Ativan taper. He was seen in consultation by social work and he is not interested in any inpatient rehab at this time as he wants to be with his significant other, but he did accept information about AA and he plans to follow as outpatient. The patient was felt to be medically stable for discharge. He did have one brief episode of atrial fibrillation prior to discharge before receiving his Cardizem dose, but after receiving the medication, his heart rate went back to sinus with the heart rate in the 70s and he felt well enough to go home. He was advised about the importance of alcohol and tobacco abstinence, but he says that he is not ready to quit smoking at this point that he is going to focus on quitting alcohol first. He was also advised about the importance of compliance with his medications. PHYSICAL EXAMINATION: Vital Signs: Temperature 98.2, heart rate is 70, respiratory rate is 18, oxygen saturation is 97% on room air, and blood pressure is 142/88. General: The patient is an elderly male, lying in bed, in no acute distress. CVS: Normal S1, S2. Regular rate and rhythm. Chest: Breath sounds present bilaterally with no added sounds. Abdomen: Soft. Bowel sounds are present. Extremities: No edema. Neuro: He is alert, awake, and oriented x3. Able to move all 4 extremities. DIET: Heart healthy diet. The patient was advised to avoid caffeine. ACTIVITIES: As tolerated. DISPOSITION: To home. STATUS WHILE IN HOSPITAL: Inpatient. If you need more information, please feel free to call me at or please obtain the full medical records. TIME SPENT: Approximately 45 minutes was spent to complete this discharge. CC: Kristine Hess NP* [id number]/CPS #: [id number] BREANNA
== END 2016-06-14 11:00 | disposition home or self-care (01) | DRG 309 ==
LOC: ED 13:57 → MEDTELE 16:44 → OBSVTOIN 06-12 07:37
PROVIDERS: ADMIT Internal Medicine; ATTEND Internal Medicine
DX: I48.0 Paroxysmal atrial fibrillation (principal); F10.239 Alcohol dependence with withdrawal, unspecified; I10 Essential (primary) hypertension; F12.10 Cannabis abuse, uncomplicated; E03.9 Hypothyroidism, unspecified; F41.9 Anxiety disorder, unspecified; Y90.8 Blood alcohol level of 240 mg/100 ml or more; F32.9 Major depressive disorder, single episode, unspecified; F17.210 Nicotine dependence, cigarettes, uncomplicated
CPT/HCPCS: 36415; 80048; 80053; 80320; 80329; 84443; 84484; 85025; 93005; 99406; A9270-GY; G0378; G0480; J1644; J2060; J2405; J3475; J7060

== ENCOUNTER 2016-10-08 14:29 | Inpatient (IN) | payer MEDICARE ==
[2016-10-08] MEDS ORDERED: Diltiazem IV* 5 MG/ML 5 ML VIAL (for loading dose/IV Push) (25 MG) IV PUSH ONE (14:45)
[2016-10-08] MEDS ORDERED: NS 0.9% 1000 ML* 1,000 ML IV ONE (14:45)
[2016-10-08] MEDS ORDERED: Thiamine IV* 100 MG, Folic Acid IV* 1 MG, Multiple Vitamin IV ADULT* 10 ML in NS 0.9% 1... IV ONE (14:46)
[2016-10-08 14:59] LABS: Hematocrit 47 % (42-52); Hemoglobin 15.9 g/dl (14.0-18.0); Mean Corpuscular HGB Conc 34 g/dl (31-36); Mean Corpuscular Hemoglobin 34 pg (27-31); Mean Corpuscular Volume 102 fL (80-94); Mean Platelet Volume 9 um3 (7.4-10.4); Red Blood Count 4.63 10^6/ul (4.0-5.4); Red Cell Distribution Width 15 % (10.5-15); White Blood Count 6.2 10^3/ul (3.5-10.8)
[2016-10-08 15:14] LABS: Troponin I 0.03 ng/mL (<0.04)
--- NOTE | 2016-10-08 15:15 | RAD ---
INDICATION: Palpitations. COMPARISON: Comparison is made with a prior chest x-ray study from October 31, 2005. TECHNIQUE: A portable view of the chest was obtained. FINDINGS: Cardiac and mediastinal contours appear to be within normal limits. The lungs appear hyperinflated. There is a small nodular density present at the right lung base which is unchanged from the prior study. The lungs are otherwise clear. No pleural effusion is seen. IMPRESSION: NO EVIDENCE FOR ACUTE DISEASE.
[2016-10-08 15:17] LABS: Albumin 4.2 g/dL (3.2-5.2); BUN/Creatinine Ratio 15.6 (8-20); Calcium 8.9 mg/dL (8.6-10.3); EGFR African American 129.2 (>60); EGFR Non-African American 100.5 (>60); Globulin 3.2 g/dL (2-4); Magnesium 1.9 mg/dL (1.9-2.7); Potassium 3.7 mmol/L (3.5-5.0); Total Bilirubin 0.7 mg/dL (0.2-1.0); Total Protein 7.4 g/dL (6.4-8.9)
[2016-10-08 15:39] LABS: TSH (Thyroid Stimulating Horm) 1.31 mcIU/mL (0.34-5.60)
[2016-10-08] MEDS ORDERED: LORazepam INJ* 2 MG/ML 1 ML VIAL IV PUSH ONE (15:43)
[2016-10-08] MEDS ORDERED: Diltiazem CD CAP* 240 MG PO ONE (16:06)
[2016-10-08 16:12] LABS: Urine Bacteria Absent (Absent); Urine Bilirubin Negative (Negative); Urine Glucose Negative (Negative); Urine Nitrite Negative (Negative)
[2016-10-08] MEDS ORDERED: Diltiazem IV* 5 MG/ML 5 ML VIAL (for loading dose/IV Push) (25 MG) IV SLOW PU ONE (18:11)
[2016-10-08] MEDS ORDERED: Acetaminophen TAB* 325 MG PO PRN (18:12)
[2016-10-08] MEDS ORDERED: Diltiazem IV* 5 MG/ML 5 ML VIAL (for loading dose/IV Push) (25 MG) IV PUSH PRN (18:21)
[2016-10-08] MEDS: Gabapentin CAP(*) 300 MG PO SCH (19:57)
[2016-10-08] MEDS: LORazepam INJ* 2 MG/ML 1 ML VIAL IV PUSH SCH ×2 (19:57→22:19)
[2016-10-08] MEDS ORDERED: ALPRAZolam TAB* 0.5 MG PO PRN (21:00)
[2016-10-08] MEDS: Heparin VIAL(*) 5000 UNITS/ML VIAL (FIVE THOUSAND) SUBCUT SCH (21:12)
[2016-10-09] MEDS: NS 0.9% 1000 ML* 1,000 ML IV SCH ×2 (00:19→09:25)
--- NOTE | 2016-10-09 02:42 | HP ---
ADDENDUM NOW INCLUDED ON THIS REPORT CC: Kristine Hess NP* ADMISSION HISTORY AND PHYSICAL: DATE OF ADMISSION: 10/08/16 PRIMARY CARE PROVIDER: Kristine Hess NP ADMITTING PROVIDER: SIOMARA Madrid. SUPERVISING PHYSICIAN: Jacinot Thomas MD * (DICTATED BY SIOMARA MADRID) CHIEF COMPLAINT: Alcohol abuse. HISTORY OF PRESENT ILLNESS: This is a 66-year-old male with a long history of alcoholism as well as atrial fibrillation who presented to the emergency department at the prompting of his girlfriend for help with his alcoholism. The patient has gone on a recent binge mostly over the last couple of days and reports drinking "nonstop" with peppermint schnapps being his drink of choice. Apparently, his girlfriend became upset with him and requested that he seek care in the hospital for his use. When he reached the emergency department, he was noted to be in atrial fibrillation with a rapid ventricular rate in 160s on initial vitals. Hospitalist group was subsequently asked to evaluate for admission. The patient he has feelings of palpitations and is mildly nauseated and overall feels "miserable." He states that his last alcoholic beverage was this morning. He states that he has undergone alcohol withdrawal in the past, has never experienced seizures or other severe symptoms previously. He has been hospitalized for his withdrawal symptoms, previously. The patient is unsure of exactly what he would like to do in terms of treatment for his alcoholism. He is in agreement with treatment for his withdrawal and thinks that the best mode of treatment would be to have one on one counseling. He is not interested in pursuing any group therapy or inpatient rehab options. The patient also notes that he has lost weight recently. He states that his lifelong weight has been about 165 pounds. He believes that he has lost about 20 pounds, but is unsure of over what timeframe. He states that his appetite has been somewhat poor, blaming it on early satiety, but no associated abdominal pain, nausea or vomiting. He states that he thinks his primary care provider knows about this, but is unsure if he has had any prior testing. He is concerned about his weight loss today. PAST MEDICAL HISTORY: 1. Alcoholism. 2. Atrial fibrillation. PAST SURGICAL HISTORY: Bowel resection for uncertain etiology. HOME MEDICATIONS: 1. Xanax 0.5 mg p.o. at bedtime. 2. Gabapentin 1200 mg p.o. t.i.d. 3. Metoprolol succinate 50 mg p.o. daily. 4. Naltrexone 50 mg p.o. daily. SOCIAL HISTORY: The patient lives at home with his girlfriend who is disabled and he acts as her primary caregiver. He admits to excessive alcohol intake as described above and smokes about a pack of cigarettes daily with greater than 50 - pack-year smoking history. REVIEW OF SYSTEMS: As noted above in HPI. All other systems reviewed and considered negative. PHYSICAL EXAMINATION GENERAL: This is a 66-year-old gentleman who is in no acute distress. It is difficult to complete a focused conversation with him. INITIAL VITALS: Temperature 98.2 degrees Fahrenheit, pulse 160 beats per minute , respiratory rate 18 per minute, oxygen saturation 97% on room air, blood pressure 149/111 mmHg. HEENT: Head is normocephalic, atraumatic with moist mucous membranes, but missing several teeth. RESPIRATORY: Lungs are clear to auscultation without wheezes, crackles or rhonchi. CARDIOVASCULAR: The patient has a tachycardic rhythm, which is irregular, but no associated murmurs, rubs or gallops. ABDOMEN: Abdomen is soft and nontender to palpation. EXTREMITIES: No edema appreciated. SKIN: No concerning rashes or lesions. LABORATORY EVALUATION: CBC shows a white blood cell count of 6200, hemoglobin of 15.9 g/dL, platelet count 146,000. Comprehensive metabolic panel shows sodium of 141, potassium 3.7, BUN of 12, creatinine of 0.77, random glucose of 101, lactic acid of 2.6, magnesium 1.9, transaminases and total bilirubin within normal limits. TSH normal. Urinalysis shows 2+ protein, 1+ blood and hyaline casts. Serum alcohol level of 234. IMAGIN. Chest x-ray shows no acute process. 2. EKG shows atrial fibrillation with a rate of approximately 120 beats per minute. ASSESSMENT AND PLAN: This is a 66-year-old gentleman with atrial fibrillation and alcoholism who presents with atrial fibrillation with rapid ventricular rate and early signs of alcohol withdrawal. The patient is subsequently being admitted to the hospital for management of his withdrawal and rapid heart rate. 1. Atrial fibrillation with rapid ventricular rate - the patient is not having associated chest pain with this. No acute ischemic findings. He received 2 diltiazem boluses in the emergency department and a sustained-release oral tablet. He still remains with an elevated heart rate and will be managed with p.r.n. boluses of diltiazem at this time period. If his rate remains difficult to manage, we will likely start a diltiazem drip. The patient is with normal magnesium. Potassium is slightly low and we will supplement that orally. He is currently receiving a banana bag as well and will follow that with maintenance fluids. His alcohol binge and subsequent withdrawal is certainly contributing to his rapid rate and question whether he has been compliant with his rate control medications at home. When asked about anticoagulation, he says that he is on a blood thinner medicine and we should have it "on his file." There is no mention of anticoagulation on his home medication list, which has been verified with his girlfriend. 2. Alcohol withdrawal - the patient has been started on WAM protocol and will receive IV Ativan as needed for symptom control. No history of seizures associated with withdrawal in the past. The patient is interested in help regarding his alcoholism. We will ask social work to please visit to provide some additional supportive measures and provide information on counseling services that he can receive in the community following discharge. 3. Tobacco abuse - the patient will be started on nicotine patch during his hospital stay. 4. Code status. The patient is full code. 5. Healthcare proxy. The patient is not clear about. 9. DVT prophylaxis. The patient will be started on subcu heparin. DISPOSITION: The patient is being admitted under inpatient status for treatment of rapid atrial fibrillation and acute alcohol withdrawal. I anticipate length of stay to be greater than 2 midnights. SIOMARA MADRID ADDENDUM: DATE OF ADMISSION: 10/08/16 ASSESSMENT: Weight loss - the patient gives a history of 20 pounds weight loss over an unspecified period to time. He complains of early satiety, but no associated abdominal pain or evidence of GI bleeding. Brief history of alcoholism, this would be concerning history for gastric cancer. Also consider his weight loss may be secondary to poor nutritional intake related to his heavy alcohol use recently. This should be followed up with his primary care provider following discharge for closer monitoring of weight trends and consider CT of the abdomen and pelvis, as this has not been already done so with upper and lower endoscopy. SIOMARA MADRID [id number]/CPS #: [id number]/CPS #: [id number] BREANNA
--- NOTE | 2016-10-09 03:16 | HP ---
CC: Kristine Hess NP * ADMISSION HISTORY AND PHYSICAL: ADDENDUM: DATE OF ADMISSION: 10/08/16 ASSESSMENT: Weight loss - the patient gives a history of 20 pounds weight loss over an unspecified period to time. He complains of early satiety, but no associated abdominal pain or evidence of GI bleeding. Brief history of alcoholism, this would be concerning history for gastric cancer. Also consider his weight loss may be secondary to poor nutritional intake related to his heavy alcohol use recently. This should be followed up with his primary care provider following discharge for closer monitoring of weight trends and consider CT of the abdomen and pelvis, as this has not been already done so with upper and lower endoscopy. SIOMARA MADRID [id number]/CPS #: [id number] MTDD
[2016-10-09 05:31] LABS: Hematocrit 39 % (42-52); Hemoglobin 13.2 g/dl (14.0-18.0); Mean Corpuscular HGB Conc 34 g/dl (31-36); Mean Corpuscular Hemoglobin 35 pg (27-31); Mean Corpuscular Volume 101 fL (80-94); Mean Platelet Volume 9 um3 (7.4-10.4); Red Blood Count 3.82 10^6/ul (4.0-5.4); Red Cell Distribution Width 15 % (10.5-15); White Blood Count 7.1 10^3/ul (3.5-10.8)
[2016-10-09 05:40] LABS: BUN/Creatinine Ratio 18.8 (8-20); Calcium 8.4 mg/dL (8.6-10.3); EGFR African American 159.9 (>60); EGFR Non-African American 124.4 (>60); Potassium 3.6 mmol/L (3.5-5.0)
[2016-10-09] MEDS: Heparin VIAL(*) 5000 UNITS/ML VIAL (FIVE THOUSAND) SUBCUT SCH ×3 (06:00→21:49)
[2016-10-09] MEDS: Metoprolol Succinate XL TAB* 50 MG PO SCH (08:35)
[2016-10-09] MEDS: Nicotine PATCH 21 MG/24 HR* PATCH TRANSDERM SCH (08:35)
[2016-10-09] MEDS: Thiamine TAB* 100 MG TAB PO SCH (08:35)
[2016-10-09] MEDS: Gabapentin CAP(*) 300 MG PO SCH ×4 (08:35→21:49)
[2016-10-09] MEDS ORDERED: chlordiazePOXIDE CAP* 25 MG PO PRN (08:40)
--- NOTE | 2016-10-09 08:48 | PN ---
Subjective Date of Service: 10/09/16 Interval History: Slept poorly, had bad dreams. He doesn't have a nciotine patch on. C/O lack of appetite. When asked, requests a nicotine patch. He states he did not take any of his home meds for the past few days. He is interested in outpt psychiatric therapy. Objective Active Medications: Acetaminophen (Tylenol Tab*) 650 mg PO Q4H PRN PRN Reason: FEVER/PAIN Chlordiazepoxide (Librium Cap*) 25 mg PO Q3H PRN PRN Reason: AGITATION/ANXIETY Gabapentin (Neurontin Cap(*)) 900 mg PO TID [facility] Heparin Sodium (Porcine) (Heparin Vial(*)) 5,000 units SUBCUT Q8HR [facility] Last Admin: 10/09/16 06:00 Dose: 5,000 units Sodium Chloride (Ns 0.9% 1000 Ml*) 1,000 mls @ 125 mls/hr IV PER RATE [facility] Last Admin: 10/09/16 00:19 Dose: 125 mls/hr Metoprolol Succinate (Toprol Xl Tab*) 50 mg PO DAILY [facility] Last Admin: 10/09/16 08:35 Dose: 50 mg Nicotine (Nicotine Patch 21 Mg/24 Hr*) 1 patch TRANSDERM DAILY [facility] Last Admin: 10/09/16 08:35 Dose: 1 patch Thiamine HCl (Vitamin B-1 Tab*) 100 mg PO DAILY [facility] Last Admin: 10/09/16 08:35 Dose: 100 mg Vital Signs 10/08/16 10/08/16 10/08/16 18:19 18:22 18:30 Temperature Pulse Rate 118 94 Respiratory 16 19 24 Rate Blood Pressure 135/79 103/82 119/93 (mmHg) O2 Sat by Pulse 97 95 Oximetry 10/08/16 10/08/16 10/08/16 18:45 18:55 19:42 Temperature 98.3 F Pulse Rate 102 119 108 Respiratory 26 18 16 Rate Blood Pressure 141/105 141/105 153/96 (mmHg) O2 Sat by Pulse 97 99 Oximetry 10/08/16 10/08/16 10/08/16 19:57 20:57 21:15 Temperature 98.9 F Pulse Rate 110 Respiratory 16 14 16 Rate Blood Pressure 140/102 (mmHg) O2 Sat by Pulse 98 Oximetry 10/08/16 10/08/16 10/08/16 21:57 22:19 23:19 Temperature Pulse Rate Respiratory 16 16 16 Rate Blood Pressure (mmHg) O2 Sat by Pulse Oximetry 10/08/16 10/09/16 10/09/16 23:20 01:13 03:05 Temperature 98.3 F 98.2 F 98.0 F Pulse Rate 37 29 45 Respiratory 20 20 20 Rate Blood Pressure 139/73 135/69 133/81 (mmHg) O2 Sat by Pulse 98 98 96 Oximetry 10/09/16 10/09/16 10/09/16 05:11 07:16 07:58 Temperature 98.3 F 98.0 F Pulse Rate 49 63 Respiratory 20 16 18 Rate Blood Pressure 138/88 151/86 (mmHg) O2 Sat by Pulse 98 98 Oximetry 10/09/16 08:35 Temperature Pulse Rate Respiratory 18 Rate Blood Pressure (mmHg) O2 Sat by Pulse Oximetry Oxygen Devices in Use Now: None Appearance: Allert, supine in bed. In fair spirits. Looks comfortable. Eyes: No Scleral Icterus Ears/Nose/Mouth/Throat: Clear Oropharnyx, Mucous Membranes Moist Neck: NL Appearance and Movements; NL JVP, No Thyroid Enlargement, Masses Respiratory: Symmetrical Chest Expansion and Respiratory Effort, Clear to Auscultation, Clear to Percussion Cardiovascular: NL Sounds; No Murmurs; No JVD, RRR, No Edema, - Abdominal: NL Sounds; No Tenderness; No Distention, No Hepatosplenomegaly, - Extremities: No Edema, No Clubbing, Cyanosis, - Skin: No Rash or Ulcers, No Nodules or Sclerosis, - Neurological: Alert and Oriented x 3, NL Sensation Result Diagrams: 10/09/16 05:09 10/09/16 05:09 Assess/Plan/Problems-Billing Assessment: - Patient Problems (1) Alcoholism Current Visit: Yes Status: Acute Code(s): F10.20 - ALCOHOL DEPENDENCE, UNCOMPLICATED SNOMED Code(s): 4601650 Comment: RAMON 234 10/08/16. consult requested. (2) Atrial fibrillation with RVR Current Visit: No Status: Acute Code(s): I48.91 - UNSPECIFIED ATRIAL FIBRILLATION SNOMED Code(s): 936658881253096 Comment: - Converted back to NSR yesterday about 9-10PM. Not his first episode. LIkely on basis of acute alcohol intoxication and HTN. Resume metoprolol which he has not taken for several days prior to admission. Echo ordered, last done 09/2014. (3) Tobacco abuse Current Visit: No Status: Acute Code(s): Z72.0 - TOBACCO USE SNOMED Code(s ): 278163177 Comment: Pt advised to quit smoking and avoid second hand smoke. (4) Weight loss Current Visit: Yes Status: Acute Comment: [facility] Pt states he has lost 30 lbs in past 3-4 yrs, not clear what his recent weights have been. Pt advised to [facility] 1 week of [facility] to get weighed and discuss his anorexia with his PCP. I have decreased his (large) gabapentin dose to see if that helps his appetite.
[2016-10-09] MEDS ORDERED: Folic Acid TAB* 1 MG PO SCH (09:00)
[2016-10-09] MEDS ORDERED: Multivitamins/Minerals TAB PO SCH (09:00)
[2016-10-09] MEDS ORDERED: Diltiazem CD CAP* 240 MG PO SCH (09:00)
[2016-10-09] MEDS ORDERED: Calcium Carbonate CHEW TAB* 500 MG (TUMS) PO PRN (21:42)
[2016-10-09] MEDS ORDERED: Calcium Carbonate CHEW TAB* 500 MG (TUMS) ONE (21:44)
[2016-10-10] MEDS: Heparin VIAL(*) 5000 UNITS/ML VIAL (FIVE THOUSAND) SUBCUT SCH (05:47)
[2016-10-10] MEDS: Gabapentin CAP(*) 300 MG PO SCH (08:44)
[2016-10-10] MEDS: Metoprolol Succinate XL TAB* 50 MG PO SCH (08:44)
[2016-10-10] MEDS: Nicotine PATCH 21 MG/24 HR* PATCH TRANSDERM SCH (08:44)
[2016-10-10] MEDS: Thiamine TAB* 100 MG TAB PO SCH (08:44)
--- NOTE | 2016-10-10 09:32 | ECHO ---
Patient: JATINDER BRASHER [facility] Rec#: [id number] : 1950 Date: 10/10/2016 Age: 66y Height: 180.34 cm / 71.0 in Weight: 63.5 kg / 140.0 lbs Sex: M BSA: 1.81 Room#: 436 Admit Date#: 10/08/2016 Type: Inpatient Referring: Mata Jj MD Reading: Edison Poon MD Pharmacology Teacher: Annia OsorioHANG CC: Kristine Hess Transthoracic Echocardiogram Indication: A-fib BP: 136/99 HR: 91 Rhythm: A-Fib Findings History: HTN, a-fib, smoker, ETOH abuse. Technical Comments: The study quality is fair. The study is technically limited due to poor parasternal windows. The study is technically limited due to the patient's smoking history. Completed at 0900. Left Ventricle: The left ventricular chamber size is normal. There is no left ventricular hypertrophy. Mild global hypokinesis of the left ventricle is observed. There is mildly decreased left ventricular systolic function. The estimated ejection fraction is 40-45%. The assessment of diastolic function is non-diagnostic. Left Atrium: The left atrial chamber size is normal. Right Ventricle: Moderator Band present. The right ventricular cavity size is normal. The right ventricular global systolic function is mildly to moderately reduced. Right Atrium: The right atrium is mildly dilated. Aortic Valve: The aortic valve leaflets are mildly thickened. There is mild aortic regurgitation. There is no evidence of aortic stenosis. Mitral Valve: There is mitral annular calcification. The mitral valve leaflets are mildly thickened. There is trace to mild mitral regurgitation. There is no evidence of mitral stenosis. Tricuspid Valve: The tricuspid valve leaflets are normal. There is mild tricuspid regurgitation. The right ventricular systolic pressure is estimated at 28 mmHg. There is no tricuspid stenosis. Pulmonic Valve: The pulmonic valve structure is not well visualized. There is a trace pulmonic regurgitation. There is no pulmonic stenosis. Pericardium: There is no significant pericardial effusion. Aorta: There is mild dilatation of the ascending aorta. There is no dilatation of the aortic arch. There is no dilation of the aortic root. Pulmonary Artery: The main pulmonary artery is not well visualized. Venous: The inferior vena cava appears normal in size. There is a greater than 50% respiratory change in the inferior vena cava dimension. Conclusions The study is technically limited due to the patient's smoking history. Completed at 0900. There is mildly decreased left ventricular systolic function. Mild global hypokinesis of the left ventricle is observed. The estimated ejection fraction is 40-45%. The assessment of diastolic function is non-diagnostic. The right ventricular global systolic function is mildly to moderately reduced. There is mild aortic regurgitation. There is trace to mild mitral regurgitation. There is mild tricuspid regurgitation. The right ventricular systolic pressure is estimated at 28 mmHg. There is no significant pericardial effusion. Compared to study of 10/09/14, the LV function is lower. The valve function are the same Measurements Name Value Normal Range RVIDd (AP) 2D 2.7 cm (0.9 - 2.6) RVDdMajor (2D) 3.9 cm (2.2 - 4.4) RVAW (2D) 0.5 cm (0.2 - 0.5) RAd ISD 4CH 5 cm (3.4 - 4.9) RA (A4C)W 3.7 cm (2.9 - 4.6) IVSd (2D) 0.8 cm (0.6 - 1) LVPWd (2D) 0.9 cm (0.6 - 1) LVIDd (2D) 4.1 cm (3.6 - 5.4) LVIDs (2D) 2.8 cm - LV FS (2D) 32 % (25 - 45) Aortic Annulus 1.8 cm (1.4 - 2.6) Ao root diameter (2D) 2.7 cm (2.1 - 3.5) Ascending Ao 3.5 cm (2.1 - 3.4) Aortic arch 3.2 cm (1.8 - 3.4) LA dimension (AP) 2D 3.4 cm (2.3 - 3.8) LAd ISD 4CH 4.6 cm (2.9 - 5.3) LA ISD 4CH W 4 cm (2.5 - 4.5) Name Value Normal Range LA ESV SP 4CH (A/L) 50 ml - LA ESV SP 2CH (A/L) 59 ml - LA ESV BP (A/L) 59 ml - LA ESV BP (A/L) index 33 ml/m2 - LA ESV SP 4CH (MOD) 40 ml - LA ESV SP 2CH (MOD) 58 ml - Name Value Normal Range MV E-wave Vmax 0.34 m/sec - MV deceleration time 190 msec - MV A-wave Vmax 0.66 m/sec - MV E:A ratio 0.51 ratio - LV septal e' Vmax 0.07 m/sec - LV lateral e' Vmax 0.1 m/sec - LV E:e' septal ratio 4.86 ratio - LV E:e' lateral ratio 3.4 ratio - Name Value Normal Range AV Vmax 1.23 m/sec - AV VTI 23.35 cm - AV peak gradient 6.2 mmHg - AV mean gradient 4.43 mmHg - LVOT Vmax 0.98 m/sec - LVOT VTI 20.36 cm - LVOT peak gradient 3.83 mmHg - LVOT mean gradient 1.85 mmHg - MARGARET Vmax 0.52 m/sec - Name Value Normal Range TR Vmax 2.5 m/sec - TR peak gradient 25 mmHg - RAP 3 mmHg - RVSP 28 mmHg - IVC diameter 1.3 cm - Name Value Normal Range PV Vmax 0.73 m/sec - PV peak gradient 2.2 mmHg -
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
[2016-10-10] MEDS ORDERED: Metoprolol Succinate XL TAB* 25 MG PO ONE (10:41)
[2016-10-10 11:24] VITALS: BP 140/82
--- NOTE | 2016-10-11 02:42 | DS ---
CC: Dr. Hess * DISCHARGE SUMMARY: DATE OF ADMISSION: DATE OF DISCHARGE: 10/10/16 HOSPITAL COURSE: This 66-year-old man presented with a chief complaint of chronic alcoholism. In the emergency room, he was noted to be in atrial fibrillation with rate over 160. The patient states he has had palpitations at times. He had never seen a endoscopy technican or have been diagnosed with heart disease in the past. He also complained of weight loss, although whether he has lost weight in the last 6 months is not really known. He had lost 20 to 30 pounds in the last 3 years and his appetite has been diminished. He may have understated the amount of alcoholic drinks in the duration of his alcohol abuse. Part of the reason he came in was that his girlfriend was concerned with his excessive drinking. The patient did well in the hospital. He did not require any benzodiazepines. He had minimal if any withdrawal symptoms. His blood pressure was a little high on discharge. He said his metoprolol dose had recently been decreased from 100 of succinate to 50. I suggested he take one and a half of the 50, he got 75 mg on the day of discharge. He will discuss this with his primary care physician. He converted to sinus rhythm and had no further episodes. Echocardiogram showed ejection fraction of 40% to 45% with mild global hypokinesis. This is probably due to a combination of alcohol abuse and possibly the tachycardia related from his atrial fibrillation. Very possibly with alcohol abstinence, his atrial fibrillation will not recur and his cardiomyopathy will resolve. However, this needs to be followed up. I recommend that he have a repeat echocardiogram in 1 to 2 months and he will have outpatient Holter monitor between 2 and 30 days duration to detect atrial fibrillation if present. The patient said he still had all the materials for alcohol treatment from his last hospital stay. He was interested in outpatient alcoholism treatment. FINAL DIAGNOSES: 1. Acute on chronic alcoholism. 2. Atrial fibrillation. 3. Tobacco abuse. 4. Weight loss. 5. Hypertension. DISCHARGE MEDICATIONS: 1. Metoprolol succinate 75 mg daily. 2. Nicotine patch 21 mg daily. 3. Gabapentin is reduced to 900 mg t.i.d. 4. Alprazolam 0.5 mg h.s. p.r.n. 5. Naltrexone has been discontinued as well. [id number]/[facility] #: [id number] [facility]
[2016-10-11] MEDS ORDERED: Metoprolol Succinate XL TAB* 50 MG PO SCH ×2 (09:00)
== END 2016-10-10 13:00 | disposition home or self-care (01) | DRG 309 ==
LOC: ED 14:29 → MEDTELE 18:12
PROVIDERS: ADMIT Internal Medicine; ATTEND Internal Medicine
DX: I48.91 Unspecified atrial fibrillation (principal); F10.239 Alcohol dependence with withdrawal, unspecified; I10 Essential (primary) hypertension; Z68.1 Body mass index [BMI] 19.9 or less, adult; Y90.9 Presence of alcohol in blood, level not specified; M47.892 Other spondylosis, cervical region; Z86.73 Personal history of transient ischemic attack (TIA), and cerebral infarction without residual deficits; F41.9 Anxiety disorder, unspecified; F32.9 Major depressive disorder, single episode, unspecified; F43.10 Post-traumatic stress disorder, unspecified; Z81.1 Family history of alcohol abuse and dependence; F17.210 Nicotine dependence, cigarettes, uncomplicated; Y90.7 Blood alcohol level of 200-239 mg/100 ml; R63.4 Abnormal weight loss
CPT/HCPCS: 36415; 71010; 80048; 80053; 80320; 81003; 81015; 82550; 82553; 83605; 83735; 83880; 84443; 84484; 85025; 93005; 93306; A9270-GY; G0480; J1644; J2060

== ENCOUNTER 2016-12-04 09:16 | Inpatient (IN) | payer MEDICARE ==
[2016-12-04] MEDS ORDERED: Thiamine IV* 100 MG, Folic Acid IV* 1 MG, Multiple Vitamin IV ADULT* 10 ML in NS 0.9% 1... IV ONE (09:24)
[2016-12-04] MEDS ORDERED: Ondansetron INJ* 2 MG/ML VIAL IV ONE (09:34)
[2016-12-04 10:03] LABS: Hematocrit 41 % (42-52); Hemoglobin 14.1 g/dl (14.0-18.0); Mean Corpuscular HGB Conc 34 g/dl (31-36); Mean Corpuscular Hemoglobin 35 pg (27-31); Mean Corpuscular Volume 101 fL (80-94); Mean Platelet Volume 10 um3 (7.4-10.4); Red Blood Count 4.09 10^6/ul (4.0-5.4); Red Cell Distribution Width 14 % (10.5-15); White Blood Count 12.3 10^3/ul (3.5-10.8)
[2016-12-04 10:15] LABS: ALT 52 U/L (7-52); AST 90 U/L (13-39); Albumin 4.3 g/dL (3.2-5.2); Alkaline Phosphatase 91 U/L (34-104); Anion Gap 17 mmol/L (2-11); BUN/Creatinine Ratio 29.6 (8-20); Blood Urea Nitrogen 24 mg/dL (6-24); CO2 Carbon Dioxide 19 mmol/L (22-32); Calcium 9.1 mg/dL (8.6-10.3); Chloride 100 mmol/L (101-111); Creatine Kinase 281 U/L (10-223); EGFR African American 121.9 (>60); EGFR Non-African American 94.8 (>60); Globulin 2.7 g/dL (2-4); Glucose 109 mg/dL (70-100); Potassium 4.5 mmol/L (3.5-5.0); Sodium 136 mmol/L (133-145)
--- NOTE | 2016-12-04 10:37 | RAD ---
Indication: Shortness of breath, chest pain, nausea. Comparison: October 08, 2016 Technique: Upright AP 0951 hours Report: Elevated lung volumes and both diffuse mild prominence of the interstitial markings and patchy rarefaction of the mid to upper lung zone interstitial markings. Mild alveolar consolidation at the LEFT midlung zone through the lung bases without volume loss. No focal pulmonary lesion, pleural effusion, pneumothorax. The heart, pulmonary vasculature, and mediastinal contours are unremarkable. IMPRESSION: The constellation of findings is most consistent with pneumonia at the LEFT mid to lower lung zone superimposed on probable chronic obstructive pulmonary disease and emphysema.
[2016-12-04 10:43] LABS: Acetaminophen < 15 mcg/mL; Alcohol 44 mg/dL (<10); Salicylate < 2.50 mg/dL (<30)
[2016-12-04 10:53] LABS: TSH (Thyroid Stimulating Horm) 1.22 mcIU/mL (0.34-5.60)
[2016-12-04] MEDS ORDERED: Levofloxacin 750 MG IVPREMIX(* 750 MG/150 ML BAG IVPB ONE (11:10)
[2016-12-04 11:51] LABS: Troponin I 0.05 ng/mL (<0.04)
[2016-12-04 12:03] LABS: Urine Bacteria Absent (Absent); Urine Bilirubin Negative (Negative); Urine Glucose Negative (Negative); Urine Nitrite Negative (Negative)
[2016-12-04 12:08] LABS: Benzodiazepine Urine Screen None Detected (None Detect)
[2016-12-04] MEDS ORDERED: Acetaminophen TAB* 325 MG PO ONE (12:32)
[2016-12-04] MEDS ORDERED: Thiamine IV* 100 MG/ML 2 ML VIAL IM ONE (13:04)
[2016-12-04] MEDS ORDERED: Aspirin TAB* 325 MG PO ONE (13:05)
[2016-12-04] MEDS ORDERED: NS 0.9% 1000 ML* 1,000 ML IV ONE (13:07)
[2016-12-04] MEDS ORDERED: Ondansetron INJ* 2 MG/ML VIAL IV PRN (13:08)
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
[2016-12-04] MEDS: Metoprolol Succinate XL TAB* 50 MG PO SCH (14:42)
[2016-12-04] MEDS: Heparin VIAL(*) 5000 UNITS/ML VIAL (FIVE THOUSAND) SUBCUT SCH ×2 (14:44→21:47)
--- NOTE | 2016-12-04 14:53 | HP ---
CC: Kristine Hess NP * HOSPITAL MEDICINE HISTORY AND PHYSICAL: DATE OF ADMISSION: 12/04/16 ATTENDING PHYSICIAN: Hima Jj MD * (dictation provided by Giselle Vieira NP). CHIEF COMPLIANT: Nausea and alcohol withdrawal. HISTORY OF PRESENT ILLNESS: Mr. Brown is a 66-year-old male who has been admitted to our hospital several times for alcohol detoxification and withdrawal symptoms, who presents today to the hospital with concern for nausea , tremor, and alcohol withdrawal. Mr. Brown states that he was "doing well" for quite sometime; however, he got into an argument with his daughter and went back to drinking whisky heavily. He notes that he really does not have a good memory of what has been going on recently in his life. Today he had nausea and tremors and therefore, called the emergency medical services and he was brought to the hospital. When asked if he has a cough or had a fever or chest pain, he states that he really cannot remember. In the emergency room, Mr. Brown had vital signs that showed that heart rate was almost 100, but he was in normal sinus rhythm. In the past, the patient has had issues with atrial fibrillation with rapid ventricular response. Blood pressure was stable. He had labs that showed an elevated troponin to 0.05 and elevated white blood cell count to 12.3. A chest x-ray which showed concern for left-sided pneumonia. Serum alcohol level was 44 and patient was tremulous and diaphoretic. PAST MEDICAL HISTORY: 1. Alcohol abuse. 2. Nicotine use. 3. Atrial fibrillation. 4. Hypothyroidism. 5. Hypertension. 6. History of a hernia repair where gangrenous small bowel was found, status post resection in 2005. MEDICATIONS: The patient states he is not been taking his medications regularly. He notes that he has been on: 1. Alprazolam 0.5 mg p.o. at bedtime. 2. Gabapentin, unsure of the dose. 3. Metoprolol succinate 75 mg p.o. daily. 4. Nicotine patch as needed. 5. He also reports being on diltiazem, but he is not sure of the dose and again he has not been taking that medication. ALLERGIES: No known drug allergies. FAMILY HISTORY: Father and mother had a history of alcohol abuse. Mother also had coronary artery disease. SOCIAL HISTORY: The patient lives with his girlfriend. He has been alcoholic for sometime. He has a [id number] smoking history. He continues to smoke. His partner is his healthcare proxy, Evelyn Landeros. REVIEW OF SYSTEMS: A 14-point review of systems was completed with Mr. Brown. His only complaint today is that he just feels "terrible all over." PHYSICAL EXAMINATION GENERAL: Mr. Brown is lying in the bed. He is in no acute distress. VITAL SIGNS: Temperature 98.8, heart rate 96, respiratory rate 17, O2 saturation 98% on room air. Blood pressure is 157/89. LUNGS: Actually clear to my auscultation bilaterally. There is no accessory muscle use. There is no bronchophony or egophony. HEART: S1 and S2. No murmur, rub or gallop and regular. ABDOMEN: Soft, nontender with bowel sounds positive x4. EXTREMITIES: No cyanosis or edema. NEUROLOGIC: He is alert. He is oriented x3. He moves all extremities equally. He has no facial asymmetry or focal weakness. Extraocular movements are intact. SKIN: Intact. LABORATORY DATA/DIAGNOSTIC STUDIES: WBC 12.3, hemoglobin 14.1, hematocrit 41, and platelet count 148,000. Sodium 136, potassium 4.5, chloride 100, serum bicarbonate 19, BUN 24, creatinine 0.81, glucose 109. Troponin 0.05. Urine shows no evidence of infection. Tox screen is positive for alcohol level of 44 and cannabinoids. Chest x-ray is read as follows: "The constellation findings is most consistent with pneumonia at the left mid to lower lung zones superimposed on probable chronic obstructive pulmonary disease and emphysema." ASSESSMENT AND PLAN: Mr. Brown is a 66-year-old male with a past medical history of alcoholism as well as atrial fibrillation with rapid ventricular response, who presents to the hospital today with concern for nausea and tremors. He has been found to have a left lower lobe pneumonia and elevated troponin. Our plans are for observation in the hospital for the followin. Pneumonia: The patient is unable to really endorse symptoms today as he has poor memory related to excessive alcohol intake. Regardless, based on the slight elevation in his white blood cell count and the presence of infiltrate on exam, we will observe the patient in the hospital overnight. He has had Levaquin in the emergency room and we will continue that IV as the patient has had problems with nausea and vomiting. Blood cultures have been sent. The patient will have IV fluids and Tylenol available p.r.n. 2. Elevated troponin. I suspect that this is secondary to pneumonia and likely reflects demand ischemia, but we will monitor troponins x2 and he will be monitored on the telemetry unit. 3. Alcohol withdrawal: The patient has tremors and was noted to be vomiting when evaluated by EMS today. Plan to have the patient monitored and to utilize Ativan via the [facility] protocol for any withdrawal symptoms. The patient will also have multivitamin, thiamine and folate. 4. Atrial fibrillation. The patient's heart rate is running about 100. He is in sinus rhythm. Plan to resume his metoprolol. He states that at times he has been on diltiazem, but we will at least for now start with metoprolol as has been ordered at his last hospitalization. He is not an appropriate candidate for anticoagulation at this time due to his active alcoholism. 5. Code status: Full code. 6. DVT prophylaxis: Heparin subcu. 7. Disposition to telemetry floor. TIME SPENT: Approximately 60 minutes were spent on the admission of this patient, more than half of the time was spent with the patient at the bedside reviewing the events leading up to this hospitalization, performing the physial examination and reviewing the plan of care. GISELLE VIEIRA NP [id number]/CPS #: [id number] BREANNA
[2016-12-04] MEDS: LORazepam TAB(*) 1 MG PO SCH (15:28)
[2016-12-04] MEDS: NS 0.9% 1000 ML* 1,000 ML IV SCH (16:23)
[2016-12-05] MEDS: NS 0.9% 1000 ML* 1,000 ML IV SCH ×2 (02:26→14:24)
[2016-12-05] MEDS: LORazepam TAB(*) 1 MG PO SCH (05:36)
[2016-12-05] MEDS: Heparin VIAL(*) 5000 UNITS/ML VIAL (FIVE THOUSAND) SUBCUT SCH ×3 (05:37→21:12)
[2016-12-05 06:33] LABS: Hematocrit 36 % (42-52); Hemoglobin 12.3 g/dl (14.0-18.0); Mean Corpuscular HGB Conc 34 g/dl (31-36); Mean Corpuscular Hemoglobin 35 pg (27-31); Mean Corpuscular Volume 100 fL (80-94); Mean Platelet Volume 10 um3 (7.4-10.4); Red Blood Count 3.56 10^6/ul (4.0-5.4); Red Cell Distribution Width 14 % (10.5-15); White Blood Count 8.6 10^3/ul (3.5-10.8)
[2016-12-05] MEDS: Multivitamins/Minerals TAB PO SCH (08:06)
[2016-12-05] MEDS: Thiamine TAB* 100 MG TAB PO SCH (08:06)
[2016-12-05] MEDS: Folic Acid TAB* 1 MG PO SCH (08:06)
[2016-12-05] MEDS: Metoprolol Succinate XL TAB* 50 MG PO SCH (08:06)
[2016-12-05] MEDS ORDERED: Influenza VAC *QUAD* 2017-18* 0.5 ML SYRINGE IM ONE (09:00)
[2016-12-05] MEDS ORDERED: Levofloxacin 750 MG IVPREMIX(* 750 MG/150 ML BAG IVPB SCH (12:00)
[2016-12-05] MEDS: Acetaminophen TAB* 325 MG PO PRN (14:27)
--- NOTE | 2016-12-05 17:59 | PN ---
Subjective Date of Service: 12/05/16 Interval History: Mr. Brown states that he feels very tired today. He reports having a severe coughing fit earlier with creamy sputum. He denies any feeling of alcohol withdrawal and feels that his tremors have resolved for the moment. He feels nervous about going home. Objective Active Medications: Acetaminophen (Tylenol Tab*) 650 mg PO Q4H PRN Folic Acid (Folvite Tab*) 1 mg PO DAILY LIZZETH Heparin Sodium (Porcine) (Heparin Vial(*)) 5,000 units SUBCUT Q8HR LIZZETH Levofloxacin/Dextrose (Levaquin 750 Mg Ivpremix(*)) 750 mg in 150 mls @ 100 mls /hr IVPB Q24H LIZZETH Sodium Chloride (Ns 0.9% 1000 Ml*) 1,000 mls @ 100 mls/hr IV PER RATE LIZZETH Lorazepam (Ativan Tab(*)) 0 - [address] [facility] PROTOCOL [facility] Metoprolol Succinate (Toprol Xl Tab*) 75 mg PO DAILY LIZZETH Multivitamins/Minerals (Theragran/Minerals Tab*) 1 tab PO DAILY LIZZETH Ondansetron HCl (Zofran Inj*) 4 mg IV Q6H PRN Thiamine HCl (Vitamin B-1 Tab*) 100 mg PO DAILY [facility] Vital Signs: Temp Pulse Resp BP Pulse Ox 98.2 F 68 14 138/89 99 12/05/16 17:26 12/05/16 17:26 12/05/16 17:26 12/05/16 17:26 12/05/16 17:26 Oxygen Devices in Use Now: None Appearance: Male sitting up in bed in NAD Eyes: No Scleral Icterus Ears/Nose/Mouth/Throat: Mucous Membranes Moist Neck: Trachea Midline Respiratory: Symmetrical Chest Expansion and Respiratory Effort, Clear to Auscultation Cardiovascular: NL Sounds; No Murmurs; No JVD, No Edema Abdominal: NL Sounds; No Tenderness; No Distention Lymphatic: No Cervical Adenopathy Extremities: No Edema Skin: No Rash or Ulcers Neurological: Alert and Oriented x 3, NL Muscle Strength and Tone Nutrition: Taking PO's Result Diagrams: 12/05/16 05:57 12/04/16 09:50 Additional Lab and Data: . Microbiology and Other Data: Microbiology 12/04/16 13:40 Aerobic Blood Culture - Preliminary Blood Venous No Growth Day 1 Anaerobic Blood Culture - Preliminary No Growth Day 1 12/04/16 13:40 Aerobic Blood Culture - Preliminary Blood Venous No Growth Day 1 Anaerobic Blood Culture - Preliminary No Growth Day 1 Assess/Plan/Problems-Billing Assessment: Mr. Brown is a 66 yo male with a PMH of alcoholism and nicotine use who was admitted on 12/04/16 with community acquired pneumonia. - Patient Problems (1) Pneumonia Comment: - Patient doing better today. Leukocytosis resolved, afebrile. - Switch to po levaquin. (2) Alcohol withdrawal Current Visit: No Status: Acute Code(s): F10.239 - ALCOHOL DEPENDENCE WITH WITHDRAWAL, UNSPECIFIED SNOMED Code(s): 345133138 Comment: - Continue WAM protocol but has not scored high enough to receive Ativan. I remain worried about withdrawal as can see delay in symptoms. - Not interested in inpatient rehab, but willing to talk to SW about outpatient resources. (3) Elevated troponin Comment: - Trops essentially unchanged at 0.05-0.06 since admission. - No chest pain, suspect that it is related to pneumonia and demand ischemia. - Could consider outpatient stress test when patient is recovered from pneumonia. (4) Hypertension Comment: - Controlled. - Continue metoprolol. (5) Paroxysmal atrial fibrillation Comment: - SR. - Continue metoprolol, patient not a good candidate for anticoagulation (Chads vasc = 2) due to alcoholism. (6) Tobacco abuse Current Visit: No Comment: - Pt advised to quit smoking and avoid second hand smoke. (7) Full code status (8) DVT prophylaxis Comment: - SQ heparin. Status and Disposition: Convert to inpatient with need for additional night of monitoring in the hospital. Anticipate discharge to home tomorrow if remains stable.
[2016-12-06] MEDS: NS 0.9% 1000 ML* 1,000 ML IV SCH ×2 (00:30→11:10)
[2016-12-06] MEDS ORDERED: Diltiazem IV* 5 MG/ML 5 ML VIAL (for loading dose/IV Push) (25 MG) IV SLOW PU ONE (02:11)
[2016-12-06] MEDS ORDERED: Diltiazem TAB* 60 MG PO SCH ×3 (03:30→06:00)
[2016-12-06] MEDS ORDERED: Diltiazem DRIP* 100 MG/100 ML ADDV.BAG IVPB SCH (05:00)
[2016-12-06] MEDS: Heparin VIAL(*) 5000 UNITS/ML VIAL (FIVE THOUSAND) SUBCUT SCH (06:16)
[2016-12-06] MEDS ORDERED: Influenza VAC *QUAD* 2017-18* 0.5 ML SYRINGE IM ONE (09:00)
[2016-12-06] MEDS ORDERED: Metoprolol Succinate XL TAB* 25 MG PO SCH (09:00)
[2016-12-06] MEDS ORDERED: Diltiazem TAB* 30 MG PO SCH (09:00)
[2016-12-06] MEDS ORDERED: Metoprolol Succinate XL TAB* 100 MG PO SCH (09:04)
--- NOTE | 2016-12-06 09:35 | ECHO ---
Patient: JATINDER BRASHER [facility] Rec#: [id number] : 1950 Date: 12/06/2016 Age: 66y Height: 180.3 cm / 71.0 in Weight: 63.5 kg / 140.0 lbs Sex: M BSA: 1.8 Admit Date#: 12/05/2016 Type: Inpatient Referring: Giselle Vieira NP Reading: Edison Poon MD [employer] Architect: Kristine Pulido RN RDCS CC: Kristine Hess Transthoracic Echocardiogram Indication: SOB, elevated troponin BP: 118/83 HR: 71 Rhythm: NSR with PACs Findings History: HTN, PAF, hypothyroidism, smoker, ETOH abuse Technical Comments: The study quality is fair. The study is technically limited due to the patient's smoking history. Completed at 0915. Left Ventricle: The left ventricular chamber size is normal. Global left ventricular wall motion and contractility are within normal limits. Left ventricular systolic function is at the lower limits of normal. The estimated ejection fraction is 50-55%. There is no consistent Doppler evidence of clinically significant diastolic dysfunction. Left Atrium: The left atrial chamber size is normal. Right Ventricle: The right ventricular cavity size is normal. The right ventricular global systolic function is normal. Right Atrium: The right atrium is mildly dilated. Aortic Valve: The aortic valve leaflets are mildly thickened. There is a trace of aortic regurgitation. There is no evidence of aortic stenosis. Mitral Valve: The mitral valve leaflets are mildly thickened. There is a trace of mitral regurgitation. There is no evidence of mitral stenosis. Tricuspid Valve: The tricuspid valve leaflets are normal. There is mild tricuspid regurgitation. No pulmonary hypertension is noted. There is no tricuspid stenosis. Pulmonic Valve: The pulmonic valve structure is not well visualized. There is no evidence of pulmonic regurgitation. There is no pulmonic stenosis. Pericardium: There is no significant pericardial effusion. Aorta: The ascending aorta is not well visualized. There is no dilatation of the aortic arch. There is no dilation of the aortic root. Pulmonary Artery: The main pulmonary artery is not well visualized. Venous: The inferior vena cava appears normal in size. There is a greater than 50% respiratory change in the inferior vena cava dimension. Summary: There was not any prior study for comparison. Conclusions Global left ventricular wall motion and contractility are within normal limits. Left ventricular systolic function is at the lower limits of normal. The estimated ejection fraction is 50-55%. The right ventricular global systolic function is normal. There is a trace of aortic regurgitation. There is a trace of mitral regurgitation. There is mild tricuspid regurgitation. No pulmonary hypertension is noted. There is no significant pericardial effusion. Measurements Name Value Normal Range RVDdMajor (2D) 3 cm (2.2 - 4.4) RVAW (2D) 0.9 cm (0.2 - 0.5) RAd ISD 4CH 5.3 cm (3.4 - 4.9) RA (A4C)W 3.4 cm (2.9 - 4.6) IVSd (2D) 0.9 cm (0.6 - 1) LVPWd (2D) 0.9 cm (0.6 - 1) LVIDd (2D) 4 cm (3.6 - 5.4) LVIDs (2D) 3.3 cm - LV FS (2D) 18 % (25 - 45) Aortic Annulus 1.9 cm (1.4 - 2.6) Ao root diameter (2D) 2.8 cm (2.1 - 3.5) Aortic arch 2.7 cm (1.8 - 3.4) LA dimension (AP) 2D 2.8 cm (2.3 - 3.8) LAd ISD 4CH 4.4 cm (2.9 - 5.3) LA ISD 4CH W 4 cm (2.5 - 4.5) Name Value Normal Range MV E-wave Vmax 0.55 m/sec - MV deceleration time 268 msec - MV A-wave Vmax 0.51 m/sec - MV E:A ratio 1.1 ratio - LV septal e' Vmax 0.07 m/sec - LV lateral e' Vmax 0.11 m/sec - LV E:e' septal ratio 7.9 ratio - LV E:e' lateral ratio 5 ratio - Name Value Normal Range AV Vmax 1.3 m/sec - AV VTI 28.7 cm - AV peak gradient 6.3 mmHg - AV mean gradient 4.5 mmHg - LVOT Vmax 0.66 m/sec - LVOT VTI 12.9 cm - LVOT peak gradient 1.7 mmHg - LVOT mean gradient 1 mmHg - Name Value Normal Range TR Vmax 2.4 m/sec - TR peak gradient 23 mmHg - RAP 3 mmHg - RVSP 26 mmHg - IVC diameter 1.4 cm - Name Value Normal Range PV Vmax 0.86 m/sec -
[2016-12-06] MEDS: Multivitamins/Minerals TAB PO SCH (09:43)
[2016-12-06] MEDS: Folic Acid TAB* 1 MG PO SCH (09:43)
[2016-12-06] MEDS: Thiamine TAB* 100 MG TAB PO SCH (09:44)
[2016-12-06] MEDS: Acetaminophen TAB* 325 MG PO PRN (09:50)
[2016-12-06] MEDS ORDERED: Levofloxacin TAB* 750 MG PO SCH (12:00)
--- NOTE | 2016-12-06 12:33 | PN ---
Subjective Date of Service: 12/06/16 Interval History: Patient seen and examined at bedside. Patient into afib overnight. Received 10mg of IV cardizem and 60mg PO and is now back in NSR. Reports feeling palpitations at the time. He states he has multiple episodes of this at home that are self-limiting. He reports fatigued. Was Abstinent from EtOH for awhile and recently started drinking again. Family History: Unchanged from Admission Social History: Unchanged from Admission Past Medical History: Unchanged from Admission Objective Active Medications: Acetaminophen (Tylenol Tab*) 650 mg PO Q4H PRN Diltiazem HCl (Cardizem Tab*) 30 mg PO Q6H LIZZETH Folic Acid (Folvite Tab*) 1 mg PO DAILY LIZZETH Heparin Sodium (Porcine) (Heparin Vial(*)) 5,000 units SUBCUT Q8HR LIZZETH Sodium Chloride (Ns 0.9% 1000 Ml*) 1,000 mls @ 100 mls/hr IV PER RATE LIZZETH Levofloxacin (Levaquin Tab*) 750 mg PO DAILY LIZZETH Lorazepam (Ativan Tab(*)) 0 - 6 mg PO .PER [facility] PROTOCOL [facility] Metoprolol Succinate (Toprol Xl Tab*) 100 mg PO DAILY [facility] Multivitamins/Minerals (Theragran/Minerals Tab*) 1 tab PO DAILY LIZZETH Ondansetron HCl (Zofran Inj*) 4 mg IV Q6H PRN Thiamine HCl (Vitamin B-1 Tab*) 100 mg PO DAILY [facility] Vital Signs 12/06/16 12/06/16 12/06/16 07:36 08:00 09:33 Temperature 97.9 F 98.5 F Pulse Rate 87 63 Respiratory 18 16 18 Rate Blood Pressure 121/92 140/76 (mmHg) O2 Sat by Pulse 99 99 Oximetry Oxygen Devices in Use Now: None Appearance: sitting up in bed, NAD Eyes: No Scleral Icterus, PERRLA Ears/Nose/Mouth/Throat: NL Teeth, Lips, Gums Neck: NL Appearance and Movements; NL JVP Respiratory: Symmetrical Chest Expansion and Respiratory Effort, Clear to Auscultation Cardiovascular: NL Sounds; No Murmurs; No JVD, RRR Abdominal: NL Sounds; No Tenderness; No Distention Extremities: No Edema Skin: No Rash or Ulcers Neurological: Alert and Oriented x 3, NL Muscle Strength and Tone Lines/Tubes/Other Access: Clean, Dry and Intact Peripheral IV Nutrition: Taking PO's Result Diagrams: 12/05/16 05:57 12/04/16 09:50 Additional Lab and Data: . Assess/Plan/Problems-Billing Assessment: Mr. Brown is a 66 yo male with a PMH of alcoholism and nicotine use who was admitted on 12/04/16 with community acquired pneumonia. - Patient Problems (1) Pneumonia (2) Elevated troponin (3) Alcohol withdrawal (4) Hypertension (5) Paroxysmal atrial fibrillation (6) Tobacco abuse (7) DVT prophylaxis (8) Full code status Status and Disposition: Stable to be discharged home.
[2016-12-06 15:27] VITALS: BP 117/73
--- NOTE | 2016-12-07 03:42 | DS ---
CC: Kristine Hess NP * DISCHARGE SUMMARY: DATE OF ADMISSION: 12/05/16 DATE OF DISCHARGE: 12/06/16 ATTENDING PHYSICIAN: Pankaj Resendiz M.D. * (report dictated by Essence Elliott NP) PRIMARY CARE PROVIDER: Kristine Hess NP, at the [facility]. PRIMARY DIAGNOSES: 1. Pneumonia. 2. Alcohol withdrawal. 3. Rapid atrial fibrillation. 4. Elevated troponin. SECONDARY DIAGNOSES: 1. Nicotine use. 2. Hypothyroidism. 3. Hypertension. STUDIES WHILE IN THE HOSPITAL: 1. Chest x-ray, 12/04/16, consistent with pneumonia to left mid to lower lung zones with probable chronic obstructive pulmonary disease and emphysema. 2. Transthoracic echocardiogram on 12/06/16, global left ventricular wall motion within normal limits. Left ventricular systolic function is in the lower limits of normal. The estimated ejection fraction is 50 to 55%. Left ventricular global systolic function is normal. There is trace of aortic regurgitation. There is trace of mitral regurgitation. There is mild tricuspid regurgitation. No pulmonary hypertension is noted. There is no significant pericardial effusion. MEDICATIONS AT TIME OF DISCHARGE: Change medication metoprolol XL 100 mg oral daily. New medications: 1. Folic acid 1 mg oral daily. 2. Levaquin 750 mg oral daily for 5 days. 3. Multivitamin one tablet oral daily. 4. Thiamine 100 mg oral daily. Following medications are the medication that patient came in on: 1. Neurontin 900 mg oral three times daily. 2. Nicotine 1 patch transdermal daily. 3. Xanax 0.5 mg oral at bedtime as needed. HISTORY OF PRESENT ILLNESS AND HOSPITAL COURSE: Mr. Brown is a 66-year-old male, who presents to the emergency room for concern for nausea alcohol withdrawal. The patient had been abstinent from alcohol for quite sometime and recently started drinking heavily. In the emergency room, the patient was found to have rapid atrial fibrillation as well as a mildly elevated troponin at 0.05 and left-sided pneumonia. The patient was admitted to the telemetry floor for pneumonia and indeterminate troponin. The patient was placed on IV Levaquin and was pancultured. The patient was transitioned to oral Levaquin. On hospital day #1, he did not have any oxygen requirements. The patient's troponin was elevated on admission and this remained indeterminate. Echocardiogram was performed, which did not show any wall motion abnormality. It is most likely that this was from demand ischemia from the pneumonia and rapid atrial fibrillation. While on telemetry, the patient did have an additional episode of rapid atrial fibrillation. He was given one-time dose of IV Cardizem and given oral Cardizem. The patient converted 3 to 4 hours later back into normal sinus rhythm. He took Toprol 75 at home and I have increased this to 200. In addition, I discussed with the patient that the use of alcohol would put him at higher risk of going back into atrial fibrillation. It is unclear as to whether he was even taking his metoprolol 75 from his prior hospitalization. For his alcohol withdrawal, he was placed on multivitamin, thiamine, and folate , and we will continue this at discharge. The patient was placed on WAM protocol, but did not require any Ativan. On 12/06/16, vitals were as follows: Temperature 98.5, heart rate 63, respiratory rate is 18, blood pressure 140/76, oxygen saturation 99%. At this point, the patient was stable for discharge. DISCHARGE PLANNING: The patient is discharged on a heart-healthy low-sodium diet. The patient's activity as tolerated. The patient has been instructed to follow up with his nurse practitioner, Kristine Hess at the [facility] within one to two weeks. The patient will have additional 5 days of Levaquin upon discharge. The patient has been instructed to return to the hospital if he experiences any worsening shortness of breath or high fever. I have reviewed all these instructions with the patient and he is agreeable to discharge. This is summarized report of a complex medical history and hospital stay. For more details, please see the entire medical record. TIME SPENT: Time for discharge was 60 minutes. 25 minutes was spent with the patient discussing medications at discharge, followup instructions. CONDITION ON DISCHARGE: Stable. ESSENCE ELLIOTT NP [id number]/[facility] #: [id number] BREANNA
== END 2016-12-06 14:46 | disposition home or self-care (01) | DRG 194 ==
LOC: ED 09:16 → UNDOADMOB 12:30 → MED 12:30 → MEDTELE 12:30 → OBSVTOIN 12-05 18:14
PROVIDERS: ADMIT Internal Medicine; ATTEND Internal Medicine
PROC: 3E0234Z Introduction of Serum, Toxoid and Vaccine into Muscle, Percutaneous Approach (ICD-10-PCS; principal; 2016-12-05)
DX: J18.9 Pneumonia, unspecified organism (principal); F10.239 Alcohol dependence with withdrawal, unspecified; I24.8 Other forms of acute ischemic heart disease; I48.0 Paroxysmal atrial fibrillation; Y90.2 Blood alcohol level of 40-59 mg/100 ml; E03.9 Hypothyroidism, unspecified; I10 Essential (primary) hypertension; F17.210 Nicotine dependence, cigarettes, uncomplicated; R74.8 Abnormal levels of other serum enzymes; M19.90 Unspecified osteoarthritis, unspecified site; F41.9 Anxiety disorder, unspecified; F32.9 Major depressive disorder, single episode, unspecified; F43.10 Post-traumatic stress disorder, unspecified; F12.90 Cannabis use, unspecified, uncomplicated; I08.3 Combined rheumatic disorders of mitral, aortic and tricuspid valves; Z82.49 Family history of ischemic heart disease and other diseases of the circulatory system; Z81.1 Family history of alcohol abuse and dependence; Z86.73 Personal history of transient ischemic attack (TIA), and cerebral infarction without residual deficits; Z23 Encounter for immunization
CPT/HCPCS: 36415; 71010; 80053; 80307; 80320; 80329; 81003; 81015; 82550; 84443; 84484; 85025; 87040; 90686; 93005; 93306; 99406; A9270-GY; G0378; G0480; J1644; J2405; J3411

== ENCOUNTER 2018-12-14 08:43 | Inpatient (IN) | payer MEDICARE ==
[2018-12-14] MEDS ORDERED: Diltiazem IV push/loading dose 5 MG/ML 5 ML vial (25 mg) IV PUSH ONE (08:58)
[2018-12-14] MEDS ORDERED: NS 0.9% 1000 ML** 1,000 ML IV ONE ×2 (08:58→12:45)
[2018-12-14] MEDS ORDERED: Diltiazem IV VIAL* 125 MG in NS 0.9% 100 ML* 100 ML IV ONE (09:22)
[2018-12-14] MEDS ORDERED: Famotidine IV* 10 MG/ML 2 ML (20 mg) IV SLOW PU ONE (09:22)
[2018-12-14 09:39] LABS: Activated Partial Thrombo Time 27.6 seconds (26.0-38.0); INR 1.03 (0.82-1.09)
[2018-12-14 09:41] LABS: Urine Appearance Clear; Urine Bacteria Absent (Absent); Urine Bilirubin Negative (Negative); Urine Blood 2+ (Negative); Urine Color Yellow; Urine Glucose Negative (Negative); Urine Ketones 2+ (Negative); Urine Nitrite Negative (Negative); Urine Protein 2+(100 mg/dL) (Negative); Urine Red Blood Cell Trace(0-2/hpf) (Absent); Urine Specific Gravity 1.016 (1.010-1.030); Urine Squamous Epithelial Cell Present (Absent); Urine Urobilinogen Negative (Negative); Urine White Blood Cell Trace(0-5/hpf) (Absent)
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
[2018-12-14 09:48] LABS: Albumin 5.1 g/dL (3.2-5.2); Albumin/Globulin Ratio 1.8 (1-3); BUN/Creatinine Ratio 32.1 (8-20); EGFR African American 109.3 (>60); EGFR Non-African American 90.3 (>60); Globulin 2.9 g/dL (2-4); Magnesium 1.6 mg/dL (1.9-2.7); Potassium 4.1 mmol/L (3.5-5.0); Total Bilirubin 2.7 mg/dL (0.2-1.0)
[2018-12-14] MEDS: Diltiazem IV BAG* D5W Premix 125 MG/125 ML BAG IV ONE ×2 (09:50→12:15)
[2018-12-14 09:51] LABS: Troponin I 0.03 ng/mL (<0.04)
[2018-12-14 09:53] LABS: CKMB ng/mL 8.4 ng/mL (0.6-6.3)
[2018-12-14 10:07] LABS: ABS Lymphocytes 0.5 10^3/ul (1.0-4.8); ABS Monocytes 0.9 10^3/ul (0-0.8); ABS Neutrophils 10.4 10^3/ul (1.5-7.7); Hematocrit 44 % (42-52); Hemoglobin 15.1 g/dL (14.0-18.0); Mean Corpuscular HGB Conc 34 g/dL (31-36); Mean Corpuscular Hemoglobin 37 pg (27-31); Mean Corpuscular Volume 106 fL (80-94); Mean Platelet Volume 9.6 fL (7.4-10.4); Nucleated Red Blood Cells % 0.1; Platelet Count 131 10^3/uL (150-450); Red Blood Count 4.14 10^6 /uL (4.18-5.48); Red Cell Distribution Width 14 % (10-15); White Blood Count 11.8 10^3/uL (3.5-10.8)
[2018-12-14 10:24] LABS: TSH (Thyroid Stimulating Horm) 2.25 mcIU/mL (0.34-5.60)
[2018-12-14] MEDS ORDERED: Magnesium Sulfate 2 GM IV* 2 GM/50 ML BAG IVPB ONE (10:48)
[2018-12-14] MEDS ORDERED: Thiamine INJ* 100 MG/ML 2 ML VIAL IM ONE (13:14)
[2018-12-14] MEDS ORDERED: Acetaminophen TAB* 325 MG PO PRN (13:20)
[2018-12-14] MEDS ORDERED: NS 0.9% 1000 ML** 1,000 ML IV SCH (13:30)
[2018-12-14] MEDS ORDERED: Magnesium Sulfate 1 GM IV* 1 GM/100 ML BAG IV ONE (13:31)
[2018-12-14] MEDS ORDERED: Pantoprazole IV* 40 MG IV ONE (13:32)
[2018-12-14] MEDS ORDERED: Metoprolol Tartrate IV* 1 MG/ML 5 ML VIAL ONE (13:51)
[2018-12-14] MEDS ORDERED: Metoprolol Tartrate IV* 1 MG/ML 5 ML VIAL IV ONE (13:56)
[2018-12-14] MEDS ORDERED: Diltiazem 125 mg in 125 mL NS (continuous infusion) IV SCH ×2 (14:00→18:00)
[2018-12-14] MEDS ORDERED: Diltiazem DRIP* 100 MG/100 ML ADDV.BAG IV SCH (14:00)
[2018-12-14] MEDS ORDERED: LORazepam TAB(*) 1 MG PO SCH (14:00)
[2018-12-14 15:05] LABS: Troponin I 0.04 ng/mL (<0.04)
[2018-12-14 15:07] LABS: Anion Gap 9 mmol/L (2-11); BUN/Creatinine Ratio 34.8 (8-20); Blood Urea Nitrogen 23 mg/dL (6-24); CO2 Carbon Dioxide 27 mmol/L (22-32); Calcium 8.5 mg/dL (8.6-10.3); Chloride 98 mmol/L (101-111); EGFR African American 144.4 (>60); EGFR Non-African American 119.3 (>60); Glucose 152 mg/dL (70-100); Potassium 4.3 mmol/L (3.5-5.0); Sodium 134 mmol/L (135-145)
[2018-12-14] MEDS: Thiamine TAB* 100 MG TAB PO SCH (16:42)
[2018-12-14] MEDS: Folic Acid TAB* 1 MG PO SCH (16:42)
[2018-12-14] MEDS: Multivitamins/Minerals TAB PO SCH (16:42)
[2018-12-14] MEDS: Gabapentin CAP(*) 300 MG PO SCH ×2 (16:43→21:17)
[2018-12-14] MEDS: NS 0.9% 1000 ML** 1,000 ML IV SCH (17:10)
[2018-12-14] MEDS ORDERED: Ondansetron INJ* 2 MG/ML VIAL IV PRN (17:29)
[2018-12-14] MEDS ORDERED: Al Hydrox/Mg Hydrox/Simet LIQ* 30 ML UDC PO PRN (17:29)
[2018-12-14] MEDS ORDERED: Diltiazem IV push/loading dose 5 MG/ML 5 ML vial (25 mg) ONE (17:39)
[2018-12-14] MEDS: Diltiazem IV BAG* D5W Premix 125 MG/125 ML BAG IV SCH (17:59)
--- NOTE | 2018-12-14 18:59 | HP ---
AMENDED REPORT NOW INCLUDES DESIGNATED COSIGNER CC: Kristine Hess NP * HISTORY AND PHYSICAL: DATE OF ADMISSION: 12/14/18 PROVIDER: Janae Carranza NP PRIMARY CARE PROVIDER: Kristine Hess NP ATTENDING PHYSICIAN WHILE IN THE HOSPITAL: Pool Mcghee MD * (dictated by Janae Carranza NP). CHIEF COMPLAINT: 1. Abdominal pain, nausea, dry heaves. 2. Palpitations. HISTORY OF PRESENT ILLNESS: Mr. Brown is a 68-year-old male with a past medical history significant for alcohol abuse, atrial fibrillation, hypertension , alcoholic liver disease who presented to the emergency room with complaints of nausea, vomiting, and abdominal pain as well as palpitations. The patient reports that he drank a lot of alcohol last night, reports that he drank a half a bottle of whisky. He reports after drinking the whisky, he developed abdominal pain and vomiting. He was awake most of the night with dry heaves and abdominal pain. Due to the continued abdominal pain, the patient presented to the emergency room for further evaluation. The patient also reports that he felt like his heart was racing and he was mildly short of breath. He denies any recent fevers, unintended weight loss. He does report chest pain with associated palpitations. Denies any edema, cough, hemoptysis. He does report shortness of breath and that is now resolved. He does report nausea and dry heaves, vomiting. Denies any diarrhea. He does report upper epigastric pain. He denies any gross hematuria, dysuria, focal weakness, or sensory loss. He denies any visual complaints, dysphagia, arthralgias, myalgias, rashes, lesions , open sores. He denies any psychosis or anxiety. While in the emergency room, the patient had routine lab work drawn. He was found to have lactic acidosis with a lactic acid level of 10.5 and was found to be in rapid atrial fibrillation with a rate of 150s. He was started on a Cardizem drip. After 20 mg Cardizem bolus, his heart rate remains in the 100s to 130s. Initial troponin was 0.03. Due to his rapid atrial fibrillation requiring Cardizem and lactic acidosis, Hospital Medicine was asked to see and evaluate him for admission. PAST MEDICAL HISTORY: Significant for: 1. Alcohol abuse. 2. Atrial fibrillation. 3. Hypertension. 4. Alcoholic liver disease. PAST SURGICAL HISTORY: Bowel resection for infection. MEDICATIONS: Home medications include: 1. Gabapentin 900 mg p.o. t.i.d. 2. Metoprolol 75 mg p.o. daily. 3. Multivitamin 1 tablet p.o. daily. 4. Thiamine 100 mg p.o. daily. 5. The patient reports he does not take folic acid 1 mg p.o. daily. 6. The patient reports he does not take aspirin 81 mg p.o. daily. 7. Alprazolam 0.5 mg p.o. at bedtime, the patient reports he is not taking this medication. ALLERGIES: No known drug allergies. FAMILY HISTORY: No reported history of coronary artery disease, diabetes, or cancer. SOCIAL HISTORY: The patient reports he smokes a pack a day. He reports he has 3 shots of whisky daily. He does report daily marijuana use. He is . Surrogate decision maker in the event he is unable to make his own decisions is his significant other, Evelyn. He is a DNR. REVIEW OF SYSTEMS: A 14-point review of systems completed, all pertinent positives were mentioned in the HPI, otherwise were negative. PHYSICAL EXAMINATION GENERAL: At this time, Mr. Brown is a 68-year-old male. He is tremulous, resting on the stretcher in the emergency room. He is alert and oriented x3. He does not appear to be in any acute distress. VITAL SIGNS: Blood pressure 165/93, heart rate 110, O2 saturation is 98%, respirations 18, temperature 98.3. HEENT: Head is atraumatic, normocephalic. Eyes: EOMs are intact. Sclerae anicteric and not pale. Oral mucosa appeared to be moist. NECK: Supple. LUNGS: Clear to auscultation bilaterally. No wheezes, rales, or rhonchi. CARDIAC: S1, S2. Irregular rate and rhythm. He is tachycardic. ABDOMEN: Soft and nontender. Bowel sounds are present x4. EXTREMITIES: He is able to move all 4 extremities. There is no clubbing or cyanosis. Pedal pulses are +2 bilaterally. NEUROLOGIC: He is awake, alert, oriented x3. Speech is clear. Thought process is intact. There are no gross focal deficits. SKIN: Intact. LABORATORY DATA AND DIAGNOSTIC STUDIES: WBCs are 11.8, RBCs 4.14, hemoglobin 15.1, hematocrit is 44, platelet count is 131. INR is 1.03, APTT is 27.6. Sodium 135, potassium 4.1, chloride 94, carbon dioxide 16, anion gap was 25, BUN was 27, creatinine 0.84, glucose was 130, lactic acid 10.5, calcium 10.0, magnesium 1.6. Total bilirubin 2.70, ASTs were 47, ALTs were 28, alkaline phosphatase was 129. CK was 330, troponin was initially 0.03. TSH was 2.25. BNP was 288. Urine was within normal limits with the exception of protein, ketones, and blood were all 2+ and squamous epithelial cells were present. Alcohol level was 20. He had a chest x-ray, radiologist's impression: No active cardiopulmonary disease. He had an electrocardiogram which showed atrial fibrillation with RVR at a rate of 158. ASSESSMENT AND PLAN: Mr. Brown is a 68-year-old male with a past medical history significant for paroxysmal atrial fibrillation, hypertension, alcoholic liver disease, and alcohol abuse who presented to the emergency room with complaints of upper epigastric pain, vomiting, palpitations, found to be in rapid atrial fibrillation with rapid ventricular response. He will be admitted to the ICU for: 1. Paroxysmal atrial fibrillation with rapid ventricular response. The patient is currently on a Cardizem drip at 15 mg. We will continue the drip. I will continue to trend his troponins. I will give him a dose of metoprolol 5 mg IV and start him on metoprolol p.o. 25 mg every 8 hours. I will get a transthoracic echocardiogram. I suspect that his atrial fibrillation with rapid ventricular response could be related to dehydration, vomiting, and excessive alcohol use. We will monitor the patient on telemetry overnight and repeat an EKG in the a.m. The patient does have CHADS-VASc score of 2 giving him a moderate risk of stroke. He does have a HAS- BLED score of 4 giving him an 8.9/ 100 patient years of major bleeding making him high risk of bleeding. Due to his risk of bleeding, I am going to hold off on anticoagulation at this time as the patient has converted to sinus rhythm in the past. Will re-evaluate risk verus benefit of anticoagulation in the AM. 2. Lactic acidosis. The patient is very tremulous. The patient currently has no signs of sepsis. His urine is within normal limits. His chest x-ray is normal. His abdominal pain has resolved. His lactic acidosis could be related to his tremors and vomiting. 3. Alcohol abuse. The patient does have a significant history of alcohol misuse. He does report he drank a half a bottle of whisky yesterday. He comes in with an alcohol level of 20. He is tremulous. The patient does drink daily. I will place him on [facility] protocol. I will give him folic acid, multivitamin, and vitamin B12. He can have alprazolam as needed for alcohol withdrawal symptoms. 4. Upper epigastric pain. The patient does complain of upper epigastric pain that has now improved since admission to the emergency room. I will give him Protonix IV and continue him on Protonix p.o. I suspect his upper epigastric pain could be related to gastritis from alcohol use. The patient's lipase was 19, so at this time it does not appear to be associated with pancreatitis. I will send a stool for occult. Rectal exam showed medium stool, no obvious signs of blood. We will continue him on IV fluids at 75 cc per hour. Should his abdominal pain become worse or he develop a fever, we will get a CT of the abdomen and pelvis. 5. Alcoholic liver disease. The patient does have an elevated bilirubin above his baseline. I will repeat liver functions tomorrow. If his liver functions remain elevated, I would recommend an ultrasound of the abdomen. 6. Hypomagnesia. Patient was given 3 gram of magnesium. Will repeat magnesium level in the AM. 7. FEN. He can have a heart healthy, decaf okay diet. 8. Code status. He is a DNR. 9. DVT prophylaxis. I will place him on SCDs. 10. Disposition. The patient will be placed in the ICU. TIME SPENT: Time spent on this admission was 70 minutes, greater than half that time was spent reviewing events leading thus far to his hospitalization, performing physical exam, and reviewing my plan of care. I have discussed this with my attending, Dr. Pool Mcghee; he is in agreement with my plan. JANAENISHA CARRANZA NP [id number]/[facility] #: [id number] BREANNA
[2018-12-14] MEDS: Metoprolol Tartrate TAB* 25 MG PO SCH (21:17)
[2018-12-14] MEDS ORDERED: Enoxaparin(*) 40 MG/0.4 ML SYR SUBCUT SCH (22:00)
[2018-12-14] MEDS: Sucralfate SUSP 1 GM/10 ml 10 ML UDC PO SCH (23:37)
[2018-12-15] MEDS: Diltiazem IV BAG* D5W Premix 125 MG/125 ML BAG IV SCH ×3 (02:35→17:48)
[2018-12-15] MEDS: Metoprolol Tartrate TAB* 25 MG PO SCH ×3 (05:38→21:21)
[2018-12-15 06:21] LABS: INR 1.15 (0.82-1.09)
[2018-12-15 06:28] LABS: Albumin 3.8 g/dL (3.2-5.2); Albumin/Globulin Ratio 1.7 (1-3); BUN/Creatinine Ratio 26.8 (8-20); Calcium 8.5 mg/dL (8.6-10.3); EGFR African American 132.7 (>60); EGFR Non-African American 109.7 (>60); Globulin 2.3 g/dL (2-4); HDL Cholesterol 78.5 mg/dL; Indirect Bilirubin 2.3 mg/dL (0.3-1.0); Potassium 3.5 mmol/L (3.5-5.0); Total Bilirubin 2.9 mg/dL (0.2-1.0); Total Protein 6.1 g/dL (6.4-8.9)
[2018-12-15] MEDS: NS 0.9% 1000 ML** 1,000 ML IV SCH (07:25)
[2018-12-15] MEDS: Gabapentin CAP(*) 300 MG PO SCH ×3 (08:36→20:04)
[2018-12-15] MEDS: Aspirin EC TAB* 81 MG TAB.EC PO SCH (08:36)
[2018-12-15] MEDS: Multivitamins/Minerals TAB PO SCH (08:36)
[2018-12-15] MEDS: Folic Acid TAB* 1 MG PO SCH (08:36)
[2018-12-15] MEDS: Sucralfate SUSP 1 GM/10 ml 10 ML UDC PO SCH ×4 (08:36→20:03)
[2018-12-15] MEDS: Thiamine TAB* 100 MG TAB PO SCH (08:36)
[2018-12-15] MEDS ORDERED: Potassium Chlor TAB* 20 MEQ TAB.ER PO ONE (11:36)
--- NOTE | 2018-12-15 11:39 | PN ---
Subjective Date of Service: 12/15/18 Interval History: Patient has no compliants of palpitations, chest pain. He had better rate control overnight, had some pauses after oral metoprolol. This AM remains in AF, HR up to 140-160 after talking to daughter. 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 Family History: Unchanged from Admission Social History: Unchanged from Admission Past Medical History: Unchanged from Admission Objective Active Medications: Acetaminophen (Tylenol Tab*) 650 mg PO Q6H PRN PRN Reason: MILD PAIN or TEMP > 100.4 Al Hydrox/Mg Hydrox/Simethicone (Maalox Plus*) 30 ml PO Q4H PRN PRN Reason: INDIGESTION Apixaban (Eliquis*) 5 mg PO BID [facility] Aspirin (Aspirin Ec Tab*) 81 mg PO DAILY [facility] Last Admin: 12/15/18 08:36 Dose: 81 mg Folic Acid (Folvite Tab*) 1 mg PO DAILY [facility] Last Admin: 12/15/18 08:36 Dose: 1 mg Gabapentin (Neurontin Cap(*)) 900 mg PO TID [facility] Last Admin: 12/15/18 08:36 Dose: 900 mg Diltiazem/Dextrose (Cardizem Iv D5w Bag* Premix) 125 mg in 125 mls @ 15 mls/hr IV Q8H [facility]; Protocol Last Admin: 12/15/18 02:35 Dose: Not Given Influenza Virus Vaccine (Fluarix Quad [id number] Syr) 0.5 ml IM .ONCE ONE Stop: 12/16/18 09:01 Lorazepam (Ativan Tab(*)) 0 - 6 mg PO .PER [facility] PROTOCOL [facility]; Protocol Last Admin: 12/15/18 10:09 Dose: 2 mg Metoprolol Tartrate (Lopressor Tab*) 25 mg PO Q8HR [facility] Last Admin: 12/15/18 05:38 Dose: 25 mg Multivitamins/Minerals (Theragran/Minerals Tab*) 1 tab PO DAILY [facility] Last Admin: 12/15/18 08:36 Dose: 1 tab Ondansetron HCl (Zofran Inj*) 4 mg IV Q6H PRN PRN Reason: NAUSEA Last Admin: 12/14/18 17:58 Dose: 4 mg Sucralfate (Sucralfate Susp) 1 gm PO QID [facility] Last Admin: 12/15/18 08:36 Dose: 1 gm Thiamine HCl (Vitamin B-1 Tab*) 100 mg PO DAILY [facility] Last Admin: 12/15/18 08:36 Dose: 100 mg Vital Signs - 8 hr 12/15/18 12/15/18 12/15/18 03:36 03:47 04:00 Temperature 36.6 C Pulse Rate 85 88 Respiratory 26 22 Rate Blood Pressure 145/104 128/94 (mmHg) O2 Sat by Pulse 91 96 Oximetry 12/15/18 12/15/18 12/15/18 08:00 08:15 08:30 Temperature Pulse Rate 80 83 84 Respiratory 25 25 24 Rate Blood Pressure 139/90 134/89 146/89 (mmHg) O2 Sat by Pulse 96 95 96 Oximetry 12/15/18 12/15/18 12/15/18 08:45 09:00 09:15 Temperature Pulse Rate 77 75 78 Respiratory 25 14 28 Rate Blood Pressure 142/92 150/87 (mmHg) O2 Sat by Pulse 97 89 94 Oximetry 12/15/18 12/15/18 12/15/18 09:30 09:46 10:00 Temperature Pulse Rate 104 138 166 Respiratory 18 13 14 Rate Blood Pressure 137/97 147/112 130/111 (mmHg) O2 Sat by Pulse 95 91 94 Oximetry Oxygen Devices in Use Now: None Appearance: alert, sitting up Eyes: No Scleral Icterus Ears/Nose/Mouth/Throat: Clear Oropharnyx Neck: No Thyroid Enlargement, Masses Respiratory: Symmetrical Chest Expansion and Respiratory Effort, Clear to Auscultation Cardiovascular: No Edema, - - tachy, irregular Abdominal: NL Sounds; No Tenderness; No Distention Neurological: Alert and Oriented x 3 Lines/Tubes/Other Access: Clean, Dry and Intact Peripheral IV Nutrition: Taking PO's Result Diagrams: 12/14/18 09:08 12/15/18 05:39 Additional Lab and Data: Laboratory Tests 12/14/18 12/14/18 12/15/18 17:08 20:00 05:39 Lactic Acid 1.4 Total Bilirubin 2.90 H Direct Bilirubin 0.60 H Indirect Bilirubin 2.3 H Troponin I 0.03 Albumin 3.8 Microbiology and Other Data: Microbiology 12/14/18 18:45 Stool Occult Blood (ALE) - Final Stool 12/14/18 16:55 Nasal Screen MRSA (PCR) - Final Nasal Mrsa Not Detected Assess/Plan/Problems-Billing Assessment: 68 year old man with alcohol abuse, paroxysmal atrial fibrillation, here with same, rapid ventricular response. - Patient Problems (1) Atrial fibrillation with RVR Current Visit: Yes Status: Acute Priority: High Code(s): I48.91 - UNSPECIFIED ATRIAL FIBRILLATION SNOMED Code(s): 128481328632118 Comment: - Rate control not attained with 15 mg/hr IV diltiazem, and metoprolol. - Disussed case with Dr. Fernandez, he will see, consider LILY/cardioversion after 48h anticoagulation - Will add PO dilt, try to wean off IV dilt. Could add IV dig if needed. (2) Alcohol withdrawal Current Visit: Yes Status: Acute Priority: Medium Code(s): F10.239 - ALCOHOL DEPENDENCE WITH WITHDRAWAL, UNSPECIFIED SNOMED Code(s): 496106926 Comment: - Continue WAM protocol but has not scored very high - mild withdrawal plus anxiety are contributing to tachycardia (3) Alcoholic liver disease Current Visit: No Status: Acute Priority: High Code(s): K70.9 - ALCOHOLIC LIVER DISEASE, UNSPECIFIED SNOMED Code(s): 14766633 Comment: - Bilirubin elevated, will recheck in AM (4) Hypomagnesemia Current Visit: Yes Status: Acute Priority: Medium Code(s): E83.42 - HYPOMAGNESEMIA SNOMED Code(s): 775221758 Comment: -Will replete Mg, K to reduce cardiac irritability. (5) DVT prophylaxis Current Visit: Yes Status: Acute Priority: Low Code(s): JPJ3989 - SNOMED Code(s): 775552248 Comment: - on Eliquis Status and Disposition: inpatient
[2018-12-15] MEDS: Diltiazem TAB* 30 MG PO SCH ×3 (11:52→23:46)
[2018-12-15] MEDS ORDERED: Magnesium Sulfate 2 GM IV* 2 GM/50 ML BAG IVPB ONE (12:00)
[2018-12-15] MEDS: Magnesium Oxide TAB* 400 MG PO SCH ×2 (12:07→20:04)
--- NOTE | 2018-12-15 15:53 | CONS ---
CC: Hospitalist Service; [facility]; Dr. Fernandez. CARDIOLOGY CONSULTATION: DATE OF CONSULT: 12/15/18 HISTORY OF PRESENT ILLNESS: I was asked by hospitalist service to see this 68-year- old male patient , who was admitted with tachycardia. He was found to be in rapid AFib. He was started on IV Cardize m and admitted to the intensive care unit. He is still in atrial fibrillation. In further speaking to the patient, there is a possibility that he had history of atrial fibrillation before, he does hav e history of alcohol abuse. He said he was drunk the night before and then he felt a fast heart rate and subsequently he presented to the hospital. He did receive Cardizem bolus and also he is on oral beta-blockers and oral Cardizem. He was started on Eliquis as well. He gives no chest pain. He do es have history of hypertension, hyperlipidemia, alcoholic liver disease and history of hyperlipidemi a. He gives no chest pain, no shortness of breath, no orthopnea, no PNDs, no dizziness, no syncope, no fever, no chills, no skin rash, no tremors, no hematochezia, no nausea, no vomiting, no abdominal pain or syncope is appreciated. PAST MEDICAL HISTORY: Includes systemic arterial hypertension, hyperlipidemia, atrial fibrillation, alcohol abuse, alcoholic liver disease. PAST SURGICAL HISTORY: He did have history of bowel resection for infection. MEDICATIONS: His medications as an outpatient include: 1. Metoprolol 75 mg daily. 2. Gabapentin 900 mg 3 times a day. 3. Multivitamins one daily. 4. Thiamine 100 mg daily. ALLERGIES: No known drug allergies. SOCIAL HISTORY: He does smoke a pack a day. He does 3 shots of whisky daily and also daily marijuan a use. REVIEW OF SYSTEMS: His review of all other systems essentially is negative. PHYSICAL EXAM: On exam, he is agitated, but he is not in acute distress. He had no symptoms of ches t pain. His vitals; blood pressure 120/70, pulse 110. He is in atrial fibrillation. He is afebrile . Head and Neck Exam: Normocephalic, atraumatic head. Ears, Nose, and Throat: Essentially benign. Neck is supple. JVP is not elevated. No carotid bruits. No masses in the neck is appreciated. Mariebl st: Clear to auscultation. No rales, no wheeze. No added sounds appreciated. Heart: Tachycardic, irregularly irregular. S1, S2. No added sounds. No gallops, no rubs. Abdomen: Benign. Positive bowel sounds. Extremities: No edema, no cyanosis, no clubbing. Skin exam is normal. Psych: Barbara l affect and mood. SOLAR ENGINEER: No focal deficits appreciated. DIAGNOSTIC STUDIES/LAB DATA: His EKG from the emergency room presentation showed him to be in rapid AFib, heart rate 158 beats per minute and nonspecific ST-T changes. His labs showed the following: His white blood cell 11.8, hemoglobin 15.1, hematocrit 44, and platel ets 131,000. His chemistry showed sodium 134, potassium 3.5 today, chloride 100, total CO2 of 28, BU N 19, creatinine 0.71. LFTs normal. BNP 288. Total cholesterol 150, LDL 55, HDL 78 and triglyceride s 83. His troponin was reported to be 0.04 and then 0.03. He is chest pain free. IMPRESSION: The patient is a 68-year-old male patient with: 1. Symptomatic rapid atrial fibrillation. 2. History of atrial fibrillation paroxysmal in the past. 3. Alcohol abuse. 4. Current tobacco consumption and marijuana abuse. 5. Alcoholic liver disease by history. 6. Hyperlipidemia. 7. Hypokalemia. 8. Unknown left ventricular systolic function. PLAN/RECOMMENDATIONS: I have discussed him with Dr. Mcghee from the hospitalist service. Currently th e patient is in the intensive care unit. I agree with rate limiting agents as they are already doing including IV Cardizem and also Cardizem p.o. and continuing his beta-pamela metoprolol. It is very important for him to cut down on alcohol drinking and caffeinated drinks and marijuana use. I did e xplain to him the relationship between them and atrial fibrillation. It is important to make sure hi s potassium is more than 4, magnesium more than 2 and his potassium to be corrected. It is important for him for any alcohol withdrawal as you are already doing. bank representative, I agree also with mariza haynesg him as you are already doing with starting him on Eliquis and I understand he did receive Love nox as well. Long-term planning, we will tentatively schedule him for a transesophageal echocardiogr aphy-guided cardioversion. I did explain to him the benefits and risks of the procedure. He is will ing to proceed if he continues to be until Monday in atrial fibrillation. Today is Monday. At serge e point when he is more stabilized, he will need further risk stratification based on his comorbiditi es by noninvasive stress testing. I answered all his concerns and questions up to his satisfaction. Thank you very much for asking us to participate in the care of this patient. More than half of at [facility] 60 to 65 plus minutes was in [id number] and education and counseling mode, explaining this to the patient and answering all his concerns and questions. [id number]/[facility] #: [id number]
[2018-12-15] MEDS: Apixaban* 5 MG TAB PO SCH (20:04)
[2018-12-15] MEDS ORDERED: Haloperidol INJ IV/IM* 5 MG/ML AMP IV SLOW PU PRN (22:28)
[2018-12-15] MEDS ORDERED: Haloperidol INJ IV/IM* 5 MG/ML AMP ONE ×3 (22:29→23:35)
[2018-12-15] MEDS ORDERED: Haloperidol INJ IV/IM* 5 MG/ML AMP IV SLOW PU ONE (23:33)
[2018-12-15] MEDS ORDERED: diPHENhydraMINE IV* 50 MG/ML 1 ml VIAL (BENADRYL) IV ONE (23:44)
[2018-12-15] MEDS ORDERED: LORazepam INJ* 2 MG/ML 1 ML VIAL IV PUSH ONE (23:45)
[2018-12-15] MEDS ORDERED: Lorazepam PYXIS KEY PRN (23:45)
[2018-12-15] MEDS ORDERED: diPHENhydraMINE IV* 50 MG/ML 1 ml VIAL (BENADRYL) ONE (23:46)
[2018-12-15] MEDS ORDERED: Lorazepam PYXIS KEY ONE (23:47)
[2018-12-15] MEDS ORDERED: LORazepam INJ* 2 MG/ML 1 ML VIAL ONE (23:47)
--- NOTE | 2018-12-16 00:08 | PN ---
Progress Note - Progress Note Date of Service: 12/16/18 Note: Initially pt was argumentative and wanted to leave. Later on started getting agitated and physically violent. Received IV and IM Haldol, IV Ativan and Benadryl, still trying to pull on devices. Will start Precedex gtt
[2018-12-16] MEDS ORDERED: Dexmedetomidine* 1,000 MCG in NS 0.9% 250 ML* 240 ML IV SCH (01:00)
[2018-12-16] MEDS: Diltiazem IV BAG* D5W Premix 125 MG/125 ML BAG IV SCH ×3 (02:40→17:21)
[2018-12-16 04:57] LABS: Albumin 3.7 g/dL (3.2-5.2); Albumin/Globulin Ratio 1.7 (1-3); BUN/Creatinine Ratio 28.8 (8-20); Calcium 8.8 mg/dL (8.6-10.3); EGFR African American 128.5 (>60); EGFR Non-African American 106.2 (>60); Globulin 2.2 g/dL (2-4); Potassium 3.5 mmol/L (3.5-5.0); Total Bilirubin 1.7 mg/dL (0.2-1.0); Total Protein 5.9 g/dL (6.4-8.9)
[2018-12-16 05:17] LABS: ABS Basophils 0.1 10^3/ul (0-0.2); ABS Eosinophils 0.1 10^3/ul (0-0.6); ABS Lymphocytes 0.9 10^3/ul (1.0-4.8); ABS Monocytes 0.7 10^3/ul (0-0.8); ABS Neutrophils 4.8 10^3/ul (1.5-7.7); Eosinophil % 1.9 %; Hematocrit 33 % (42-52); Hemoglobin 11.5 g/dL (14.0-18.0); Lymphocyte % 13.3 %; Mean Corpuscular HGB Conc 35 g/dL (31-36); Mean Corpuscular Hemoglobin 37 pg (27-31); Mean Corpuscular Volume 106 fL (80-94); Nucleated Red Blood Cells % 0.1; Red Blood Count 3.12 10^6 /uL (4.18-5.48); Red Cell Distribution Width 14 % (10-15); White Blood Count 6.5 10^3/uL (3.5-10.8)
[2018-12-16 05:43] LABS: Platelet Count 82 10^3/uL (150-450)
[2018-12-16] MEDS: Metoprolol Tartrate TAB* 25 MG PO SCH ×4 (07:01→22:29)
[2018-12-16] MEDS: Diltiazem TAB* 30 MG PO SCH ×3 (07:01→18:26)
[2018-12-16] MEDS ORDERED: LORazepam INJ* 2 MG/ML 1 ML VIAL ONE ×6 (07:17→12:20)
[2018-12-16] MEDS ORDERED: Lorazepam PYXIS KEY ONE ×6 (07:17→12:19)
[2018-12-16] MEDS ORDERED: Influenza VAC *QUAD* 2019-20* 0.5 ML SYRINGE IM ONE (09:00)
[2018-12-16] MEDS: LORazepam INJ* 2 MG/ML 1 ML VIAL IV PUSH PRN ×7 (09:50→23:08)
[2018-12-16] MEDS: Apixaban* 5 MG TAB PO SCH (11:35)
[2018-12-16] MEDS: Aspirin EC TAB* 81 MG TAB.EC PO SCH (11:48)
[2018-12-16] MEDS: Enoxaparin(*) 60 MG/0.6 ML SYR SUBCUT SCH (11:55)
[2018-12-16] MEDS: Folic Acid TAB* 1 MG PO SCH (12:24)
[2018-12-16] MEDS: Thiamine TAB* 100 MG TAB PO SCH (12:24)
[2018-12-16] MEDS: Sucralfate SUSP 1 GM/10 ml 10 ML UDC PO SCH ×2 (12:24→13:07)
[2018-12-16] MEDS: Gabapentin CAP(*) 300 MG PO SCH ×3 (12:24→22:29)
[2018-12-16] MEDS: Magnesium Oxide TAB* 400 MG PO SCH (12:24)
[2018-12-16] MEDS: Multivitamins/Minerals TAB PO SCH (12:24)
[2018-12-16] MEDS ORDERED: diPHENhydraMINE IV* 50 MG/ML 1 ml VIAL (BENADRYL) ONE (12:36)
[2018-12-16] MEDS: diPHENhydraMINE IV* 50 MG/ML 1 ml VIAL (BENADRYL) IV PRN ×2 (16:07→19:59)
--- NOTE | 2018-12-16 16:29 | PN ---
Date of Service: 12/16/16 Critical Care Services: Patient was agitated and belligerent today and has required lorazepam and benadryl for sedation. Rate control of AFib has not been a problem today. Vital Signs: Temp Pulse Resp BP SpO2 FiO2 98.1 F 70 15 107/80 96 Physical Exam: Gen:Arousable with effort HEENT: Pupils midposition and reactive Lungs: Clear Cardiac: Irreg rhythm. No murmurs Abdomen: Not distended Extremities: No tremors Neuro: No asterixis Fluid Balance (Past 24 Hours): 12/15/18 12/16/18 06:59 06:59 Intake Total 3180 1619 Output Total 1335 1025 Balance 1845 594 Weight 137 lb 8 oz 135 lb 14.4 oz Intake: IV Fluids 2630 479 NS (0.9%) 440 479 IVPB 430 60 Magnesium 60 NS (0.9%) 430 Medicated IV 120 200 CC - Dexmedetomidine/ 42 Precedex GEN - Diltiazem/Cardizem 120 158 Oral 880 Output: Urine 1335 1025 Other: Estimated Void Large # Voids 1 Labs: 12/16/18 12/16/18 04:20 04:20 WBC 6.5 RBC 3.12 L Hgb 11.5 L Hct 33 L MCV 106 H MCH 37 H MCHC 35 RDW 14 Plt Count 82 L MPV 10.0 Neut % (Auto) 72.8 Lymph % (Auto) 13.3 [place] % (Auto) 11.0 Eos % (Auto) 1.9 Baso % (Auto) 1.0 Absolute Neuts (auto) 4.8 Absolute Lymphs (auto) 0.9 L Absolute Monos (auto) 0.7 Absolute Eos (auto) 0.1 Absolute Basos (auto) 0.1 Absolute Nucleated RBC 0.0 Nucleated RBC % 0.1 Sodium 138 Potassium 3.5 Chloride 105 Carbon Dioxide 29 Anion Gap 4 BUN 21 Creatinine 0.73 Est GFR ( Amer) 128.5 Est GFR (Non-Af Amer) 106.2 BUN/Creatinine Ratio 28.8 H Glucose 121 H Calcium 8.8 Total Bilirubin 1.70 H AST 38 ALT 24 Alkaline Phosphatase 90 Total Protein 5.9 L Albumin 3.7 Globulin 2.2 Albumin/Globulin Ratio 1.7 Studies: None today Nutrition: Nothing today Impression: 1. Agitated delirium with hallucinations (visual and auditory) - most likely represents ETOH withdrawal. 2. Atrial fibrillation - rate controlled with diltiazem Plan: 1. Sedate with ativan and benadryl as needed. 2. Patient scheduled for cardioversion tomorrow, but this may not be timely (or necessary) in light of the ETOH withdrawal. Critical Care Time: 70 minutes (mostly involved with adequately sedating this patient).
[2018-12-16] MEDS ORDERED: Lactated Ringers 1000 ML Bag* 1,000 ML IV SCH (17:00)
[2018-12-16] MEDS: NS 0.9% 1000 ML** 1,000 ML IV SCH (18:26)
[2018-12-17] MEDS: Diltiazem TAB* 30 MG PO SCH ×6 (00:01→23:53)
[2018-12-17] MEDS: Enoxaparin(*) 60 MG/0.6 ML SYR SUBCUT SCH ×4 (00:01→23:11)
[2018-12-17] MEDS: LORazepam INJ* 2 MG/ML 1 ML VIAL IV PUSH PRN ×2 (02:43→04:14)
[2018-12-17] MEDS: diPHENhydraMINE IV* 50 MG/ML 1 ml VIAL (BENADRYL) IV PRN (03:38)
[2018-12-17] MEDS: NS 0.9% 1000 ML** 1,000 ML IV SCH (04:27)
[2018-12-17] MEDS: Metoprolol Tartrate TAB* 25 MG PO SCH ×3 (06:20→21:17)
[2018-12-17] MEDS ORDERED: Influenza VAC *QUAD* 2019-20* 0.5 ML SYRINGE IM ONE (09:00)
[2018-12-17] MEDS: Folic Acid TAB* 1 MG PO SCH (11:32)
[2018-12-17] MEDS: Gabapentin CAP(*) 300 MG PO SCH ×3 (11:32→19:35)
[2018-12-17] MEDS: Thiamine TAB* 100 MG TAB PO SCH (11:32)
--- NOTE | 2018-12-17 11:51 | PN ---
Date of Service: 12/17/18 Critical Care Services: Hypoactive delirium this AM after needing significant sedation yesterday for apparent withdrawal Vital Signs: Temp Pulse Resp BP SpO2 FiO2 36.6 C 138 14 112/89 94 12/17/18 11:29 12/17/18 11:30 12/17/18 11:30 12/17/18 11:30 12/17/18 11:30 Physical Exam: Gen: Rousable initially and now awake and eating RASS 0 HEENT: NCAT, PERRL Lungs: clear Cardiac: S1S2 irregularly irregular tachycardic Abdomen: soft, NT, ND, +BS Extremities: no edema Neuro: A&O, grossly non-focal Fluid Balance (Past 24 Hours): I= O= Net Intake & Output 12/15/18 12/16/18 12/17/18 12/18/18 06:59 06:59 06:59 06:59 Intake Total 3180 1619 1371.6 Output Total 1335 1025 1250 Balance 1845 594 121.6 Weight 62.369 kg 61.643 kg 62.823 kg Intake: IV Fluids 2630 479 1183 NS (0.9%) 132 369 0561 IVPB 430 60 Magnesium 60 NS (0.9%) 430 Medicated IV 120 200 188.6 CC - Dexmedetomidine/ 42 43.4 Precedex GEN - Diltiazem/Cardizem 120 158 145.2 Oral 880 Output: Urine 1335 1025 1250 Other: Estimated Void Large Large # Voids 1 Labs: Laboratory Results - last 24 hr 12/16/18 04:20 Hem Pathologist Commnt Studies: Reviewed Nutrition: Taking PO very well this AM Impression: 68 y/o male agitated delirium in setting of afib RVR now awake an compliant back in RVR Plan: Afib RVR - was mack while asleep and now awake with RVR. Restarting gtt and giving cardizem PO. Not a great candidate for anticoagulation. Perhaps rate control with negative chronotropes the best posture. LILY/Cardioversion on the table as well. Delirium Tremens - agitated delirium and hallucinations yesterday. he actually remembers some of it and recounts his hallucinations. He is off the precedex now and no more bradyarrhythmias. Let see where he takes us, his mood right now is entirely sober with a mild tremor. Ativan is available as needed. Thiamine is on board as is folate. DVT prophylaxis in place. If we get him off the diltiazem gtt and mentation remains good will get him OOB to chair today, possibly PT. D/W pt. D/W Dr. Poon
[2018-12-17] MEDS ORDERED: Ibuprofen TAB* 400 MG PO ONE (12:03)
[2018-12-17] MEDS: Diltiazem IV BAG* D5W Premix 125 MG/125 ML BAG IV SCH ×2 (13:20→17:46)
[2018-12-18] MEDS: LORazepam INJ* 2 MG/ML 1 ML VIAL IV PUSH PRN (00:22)
[2018-12-18] MEDS: NS 0.9% 1000 ML** 1,000 ML IV SCH (01:14)
[2018-12-18] MEDS: Diltiazem TAB* 30 MG PO SCH ×3 (05:37→17:40)
[2018-12-18] MEDS: Metoprolol Tartrate TAB* 25 MG PO SCH (05:37)
[2018-12-18 05:53] LABS: Albumin 3.8 g/dL (3.2-5.2); Albumin/Globulin Ratio 1.7 (1-3); BUN/Creatinine Ratio 18.5 (8-20); EGFR Non-African American 94.2 (>60); Globulin 2.2 g/dL (2-4); Magnesium 1.6 mg/dL (1.9-2.7); Phosphorus 3.7 mg/dL (2.5-5.0); Potassium 3.4 mmol/L (3.5-5.0); Total Bilirubin 1.5 mg/dL (0.2-1.0)
[2018-12-18] MEDS: Thiamine TAB* 100 MG TAB PO SCH (08:47)
[2018-12-18] MEDS: Gabapentin CAP(*) 300 MG PO SCH ×3 (08:47→21:30)
[2018-12-18] MEDS: Folic Acid TAB* 1 MG PO SCH (08:47)
[2018-12-18] MEDS ORDERED: KCL 20 MEQ/100 ML IVPREMIX* 20 MEQ/100 ML BAG IV ONE (08:55)
[2018-12-18] MEDS ORDERED: Magnesium Sulfate IV* 3 GM in NS 0.9% 100 ML* 100 ML IVPB ONE (08:55)
[2018-12-18] MEDS ORDERED: Potassium Chlor TAB* 10 MEQ TAB.ER PO ONE (08:56)
[2018-12-18] MEDS ORDERED: Influenza VAC *QUAD* 2019-20* 0.5 ML SYRINGE IM ONE (09:00)
[2018-12-18] MEDS ORDERED: Magnesium Sulfate 2 GM IV* 2 GM/50 ML BAG IVPB ONE (09:08)
--- NOTE | 2018-12-18 09:14 | PN ---
Subjective Date of Service: 12/18/18 - PAF Interval History: Patient converted to NSR around 202912/17/2018 has been in NSR with frequent PACs since. HE denies chest pain, palpitations, sob and is pleasant this morning. I spoke with nursing staff who states patient's night was uneventful. No report of melena, hematochezia or hematuria,. Medications Active Medications: Diltiazem HCl (Cardizem Tab*) 30 mg PO Q6HR [facility] Last Admin: 12/18/18 05:37 Dose: 30 mg Diphenhydramine HCl (Benadryl Iv*) 50 mg IV Q4H PRN PRN Reason: AGITATION Last Admin: 12/17/18 03:38 Dose: 50 mg Enoxaparin Sodium (Lovenox(*)) 60 mg SUBCUT Q12H [facility] Last Admin: 12/17/18 23:11 Dose: 60 mg Folic Acid (Folvite Tab*) 1 mg PO DAILY [facility] Last Admin: 12/18/18 08:47 Dose: 1 mg Gabapentin (Neurontin Cap(*)) 900 mg PO TID [facility] Last Admin: 12/18/18 08:47 Dose: 900 mg Dexmedetomidine HCl 1,000 mcg/ (Sodium Chloride) 250 mls @ 0 mls/hr IV .( Initial rate) [facility]; Protocol Last Admin: 12/16/18 00:31 Dose: 6.7 mls/hr Sodium Chloride (Ns 0.9% 1000 Ml) 1,000 mls @ 100 mls/hr IV .PER RATE [facility] Last Admin: 12/18/18 01:14 Dose: 100 mls/hr Magnesium Sulfate 3 gm/ Sodium (Chloride) 106 mls @ 53 mls/hr IVPB ONCE ONE Stop: 12/18/18 10:54 Lorazepam (Ativan Inj*) 2 mg IV PUSH Q1H PRN PRN Reason: AGITATION Last Admin: 12/18/18 00:22 Dose: 2 mg Metoprolol Succinate (Toprol Xl Tab*) 100 mg PO DAILY [facility] Miscellaneous (Ativan Pyxis George) 1 ea N/A .ATIVAN IV GEORGE PRN PRN Reason: PYXIS GEORGE Potassium Chloride (Klor Con Er Tab*) 40 meq PO ONCE ONE Stop: 12/18/18 08:57 Thiamine HCl (Vitamin B-1 Tab*) 100 mg PO DAILY [facility] Last Admin: 12/18/18 08:47 Dose: 100 mg Objective Vital Signs: Temp Pulse Resp BP Pulse Ox 99.2 F 50 22 149/102 92 12/18/18 08:00 12/18/18 07:01 12/18/18 07:01 12/18/18 07:01 12/18/18 07:01 Oxygen Devices in Use Now: None Appearance: sitting upright in bed, NAD, A+O x3 Eyes: No Scleral Icterus, PERRLA Ears/Nose/Mouth/Throat: NL Teeth, Lips, Gums, Clear Oropharnyx, Mucous Membranes Moist Neck: NL Appearance and Movements; NL JVP, Trachea Midline Respiratory: - - Diminished throughout, non labored. Cardiovascular: - - Normal S1, S2, irregular rate but regular rhythm. No murmur , gallop or rub. Extremities: No Edema Skin: No Rash or Ulcers Neurological: Alert and Oriented x 3 Lines/Tubes/Other Access: Clean, Dry and Intact Peripheral IV Laboratory Results: 12/16/18 04:20 12/18/18 05:29 INR (Anticoag Therapy) 1.15 (0.82-1.09) H 12/15/18 05:39 APTT 27.6 seconds (26.0-38.0) 12/14/18 09:08 Total Bilirubin 1.50 mg/dL (0.2-1.0) H 12/18/18 05:29 Direct Bilirubin 0.60 mg/dL (0.03-0.18) H 12/15/18 05:39 Indirect Bilirubin 2.3 mg/dL (0.3-1.0) H 12/15/18 05:39 AST 28 U/L (13-39) 12/18/18 05:29 ALT 27 U/L (7-52) 12/18/18 05:29 Alkaline Phosphatase 101 U/L (34-104) 12/18/18 05:29 CK-MB (CK-2) 8.4 ng/mL (0.6-6.3) H 12/14/18 09:08 B-Natriuretic Peptide 288 pg/mL (<=100) H 12/14/18 09:08 Total Protein 6.0 g/dL (6.4-8.9) L 12/18/18 05:29 Albumin 3.8 g/dL (3.2-5.2) 12/18/18 05:29 Globulin 2.2 g/dL (2-4) 12/18/18 05:29 Albumin/Globulin Ratio 1.7 (1-3) 12/18/18 05:29 Triglycerides 83 mg/dL 12/15/18 05:39 Cholesterol 150 mg/dL 12/15/18 05:39 LDL Cholesterol 55 mg/dL 12/15/18 05:39 HDL Cholesterol 78.5 mg/dL 12/15/18 05:39 TSH 2.25 mcIU/mL (0.34-5.60) 12/14/18 09:08 12/14/18 12/14/18 12/14/18 09:08 14:33 20:00 Troponin I 0.03 0.04 H* 0.03 Laboratory Results - last 24 hr 12/16/18 12/18/18 12/18/18 04:20 05:29 05:29 Hem Pathologist Commnt Sodium 138 Potassium 3.4 L Chloride 105 Carbon Dioxide 27 Anion Gap 6 BUN 15 Creatinine 0.81 Est GFR ( Amer) 114.0 Est GFR (Non-Af Amer) 94.2 BUN/Creatinine Ratio 18.5 Glucose 83 Calcium 9.0 Ionized Calcium 1.22 Phosphorus 3.7 Magnesium 1.6 L Total Bilirubin 1.50 H AST 28 ALT 27 Alkaline Phosphatase 101 Total Protein 6.0 L Albumin 3.8 Globulin 2.2 Albumin/Globulin Ratio 1.7 Diagnostic Imaging: Patient Name: JATINDER BRASHER Medical Record#: [id number] Ordering Physician: Roberto Wood MD Acct.#: [id number] : 1950 Age: 68 Sex: M Location: EMERGENCY DEPARTMENT Exam Date: 12/14/1859 ADM Status: PRE ER Order Information: CHEST AP OR PORT Accession Number: [id number] CPT: 49743 Indication: Palpitations. Single frontal view of the chest performed at 0904 hours was reviewed. Comparison is made with previous exam dated December 04, 2016. No mediastinal shift is noted. Heart is of normal size and configuration. Lung [place] appear clear. IMPRESSION: NO ACTIVE CARDIOPULMONARY DISEASE IS NOTED. <Electronically signed by Elba Javier MD in OV> 12/14/18925 Dictated By: Elba Javier MD Dictated Date/Time: 12/14/18922 Transcribed Date/Time: 12/14/18922 Copy to: CC:Kristine Hess LIFT TRUCK MECHANIC; Roberto Wood MD Imaging - [facility] Imaging - [facility] Imaging [facility] [address] [place] [id number] [address] [address] ph ([phone]) ph ([phone]) ph ([phone]) This report is only to be considered final once signed by the Provider(s) as displayed in the "<Electronically Signed by >" field (s). Absence of a signature indicates the report is in a draft status and still needs to be finalized. In the event this document was created by someone other than the signing Provider, the individual initiating the document will be listed in the "Entered by:" or "Dictated by:" [place]. 1 of 1 EKG Data: Today's ECG pending Telemetry reviewed. NSR rate 80-90s with frequent PACs Assessment/Plan #1 h/o PAF; Currently in NSR. Chads Vasc 2 historically not on OAC. He states he usually does not fall at home. He is of note an alcoholic with known cirrhosis. PLTs are 82. He is in NSR. Recommend keeping K+>4, Mag >2 I took the liberty of replacing electrolytes. Will DC Lopressor and RX Toprol 100mg/day. Home Bblocker dose was Toprol 75mg/day. IF not candidate for OAC will speak with Dr. Poon about AAT. I stressed the importance of sobriety with the patient. He states he is interested in detox. He would not be a candidate for Xarelto due to h/o cirrhosis. #2 h/o HTN; Recommend SBP < 130. He has a h/o cirrhosis. Will re start home Toprol but increase dose to 100mg/day. #3 alcoholism; differ to primary team. #4 Epigastric pain; resolved. Of note Hgb went from 15 to 11.5, He denies bleeding. Will repeat study. #4 Disposition pending course. will d/w Dr. Poon attending physician . Attending: Edison Poon
[2018-12-18] MEDS: Metoprolol Succinate XL TAB* 100 MG PO SCH (09:32)
[2018-12-18 09:53] LABS: ABS Basophils 0.1 10^3/ul (0-0.2); ABS Eosinophils 0.2 10^3/ul (0-0.6); ABS Lymphocytes 0.7 10^3/ul (1.0-4.8); ABS Monocytes 0.7 10^3/ul (0-0.8); ABS Neutrophils 5.6 10^3/ul (1.5-7.7); Eosinophil % 2.7 %; Hematocrit 34 % (42-52); Hemoglobin 11.8 g/dL (14.0-18.0); Mean Corpuscular HGB Conc 35 g/dL (31-36); Mean Corpuscular Hemoglobin 37 pg (27-31); Mean Corpuscular Volume 106 fL (80-94); Mean Platelet Volume 9.3 fL (7.4-10.4); Nucleated Red Blood Cells % 0.1; Platelet Count 91 10^3/uL (150-450); Red Blood Count 3.24 10^6 /uL (4.18-5.48); Red Cell Distribution Width 14 % (10-15); White Blood Count 7.3 10^3/uL (3.5-10.8)
--- NOTE | 2018-12-18 11:04 | PN ---
Date of Service: 12/18/18 Critical Care Services: AFib converted to RSR. Agitation controlled. Vital Signs: Temp Pulse Resp BP SpO2 FiO2 37.3 C 79 23 159/88 96 12/18/18 08:00 12/18/18 09:01 12/18/18 10:00 12/18/18 09:00 12/18/18 09:01 Physical Exam: Gen: alert and appropriate HEENT: NCAT, PERRL Lungs:clear Cardiac: S1S2 regular Abdomen: soft, NT, ND, +BS Extremities: no edema Neuro: A&O, grossly non-focal Fluid Balance (Past 24 Hours): I= O= Net Intake & Output 12/16/18 12/17/18 12/18/18 12/19/18 06:59 06:59 06:59 06:59 Intake Total 1619 1371.6 2539.5 Output Total 1025 1250 1575 850 Balance 594 121.6 964.5 -850 Weight 61.643 kg 62.823 kg 62.825 kg Intake: IV Fluids 479 1183 1383 NS (0.9%) 479 1183 1383 IVPB 60 856 Magnesium 60 NS (0.9%) 856 Medicated IV 200 188.6 100.5 CC - Dexmedetomidine/ 42 43.4 12.7 Precedex GEN - Diltiazem/Cardizem 158 145.2 87.8 Oral 880 200 Output: Urine 1025 1250 1575 850 Other: Estimated Void Large Large # Voids 1 Labs: Laboratory Results - last 24 hr 12/18/18 12/18/18 12/18/18 05:29 05:29 08:57 WBC 7.3 RBC 3.24 L Hgb 11.8 L Hct 34 L MCV 106 H MCH 37 H MCHC 35 RDW 14 Plt Count 91 L MPV 9.3 Neut % (Auto) 76.7 Lymph % (Auto) 10.0 [place] % (Auto) 9.5 Eos % (Auto) 2.7 Baso % (Auto) 1.1 Absolute Neuts (auto) 5.6 Absolute Lymphs (auto) 0.7 L Absolute Monos (auto) 0.7 Absolute Eos (auto) 0.2 Absolute Basos (auto) 0.1 Absolute Nucleated RBC 0.0 Nucleated RBC % 0.1 Sodium 138 Potassium 3.4 L Chloride 105 Carbon Dioxide 27 Anion Gap 6 BUN 15 Creatinine 0.81 Est GFR ( Amer) 114.0 Est GFR (Non-Af Amer) 94.2 BUN/Creatinine Ratio 18.5 Glucose 83 Calcium 9.0 Ionized Calcium 1.22 Phosphorus 3.7 Magnesium 1.6 L Total Bilirubin 1.50 H AST 28 ALT 27 Alkaline Phosphatase 101 Total Protein 6.0 L Albumin 3.8 Globulin 2.2 Albumin/Globulin Ratio 1.7 Studies: EKG RSR grossly non-ischemic Nutrition: Eating Impression: 68 y/o male presents dehydrated with afib RVR and then complicated by acute agitated delirium consistent with ETOH withdrawal Plan: Afib RVR - Dr. Poon following. Lopressor and Cardizem being adjusted. Converted to RSR last PM, had been considered for LILY/DC Cardioversion. Currently on Lovenox full dose. Chads-Vasc per Cards note. Acute agitated delirium - resolved, clearly related to his ETOH hx and cirrhosis. Calm and appropriate the last 24 hrs. Anemia - hemoconcentrated on admit, true Hgb corrected with euvolemia and has been stable. No clinical bleeding. OK to floor.
[2018-12-18] MEDS: Enoxaparin(*) 60 MG/0.6 ML SYR SUBCUT SCH ×2 (11:23→22:31)
[2018-12-19] MEDS: Diltiazem TAB* 30 MG PO SCH ×2 (01:45→07:12)
[2018-12-19 07:53] LABS: BUN/Creatinine Ratio 18.9 (8-20); Calcium 9.6 mg/dL (8.6-10.3); EGFR African American 79.2 (>60); EGFR Non-African American 65.5 (>60); Magnesium 1.8 mg/dL (1.9-2.7); Potassium 3.8 mmol/L (3.5-5.0)
[2018-12-19] MEDS ORDERED: Magnesium Sulfate 2 GM IV* 2 GM/50 ML BAG IVPB ONE (08:05)
[2018-12-19] MEDS ORDERED: Potassium Chloride* LIQUID 20 MEQ/15 ML UDC PO ONE (08:05)
[2018-12-19] MEDS: Gabapentin CAP(*) 300 MG PO SCH (09:37)
[2018-12-19] MEDS: Metoprolol Succinate XL TAB* 100 MG PO SCH (09:39)
[2018-12-19] MEDS: Thiamine TAB* 100 MG TAB PO SCH (09:40)
[2018-12-19] MEDS: Folic Acid TAB* 1 MG PO SCH (09:40)
--- NOTE | 2018-12-19 10:37 | PN ---
Subjective Date of Service: 12/19/18 - CC: SOB, dizzy, PAF w/RVR Interval History: Patient converted to NSR around 202912/17/2018 has been in NSR with frequent PACs since. HE denies chest pain, palpitations, sob and is pleasant this morning. Pt walking w/o problems. Pt says he is scarred of further Afib. Medications Active Medications: Diltiazem HCl (Cardizem Tab*) 60 mg PO Q8HR [facility] Diphenhydramine HCl (Benadryl Iv*) 50 mg IV Q4H PRN PRN Reason: AGITATION Last Admin: 12/17/18 03:38 Dose: 50 mg Enoxaparin Sodium (Lovenox(*)) 60 mg SUBCUT Q12H [facility] Last Admin: 12/18/18 22:31 Dose: 60 mg Folic Acid (Folvite Tab*) 1 mg PO DAILY [facility] Last Admin: 12/19/18 09:40 Dose: 1 mg Gabapentin (Neurontin Cap(*)) 900 mg PO TID [facility] Last Admin: 12/19/18 09:37 Dose: 900 mg Lorazepam (Ativan Inj*) 2 mg IV PUSH Q1H PRN PRN Reason: AGITATION Last Admin: 12/18/18 00:22 Dose: 2 mg Metoprolol Succinate (Toprol Xl Tab*) 100 mg PO DAILY [facility] Last Admin: 12/19/18 09:39 Dose: 100 mg Miscellaneous (Ativan Pyxis George) 1 ea N/A .ATIVAN IV GEORGE PRN PRN Reason: PYXIS GEORGE Thiamine HCl (Vitamin B-1 Tab*) 100 mg PO DAILY [facility] Last Admin: 12/19/18 09:40 Dose: 100 mg Objective Vital Signs: Temp Pulse Resp BP Pulse Ox 97.4 F 74 20 140/78 98 12/19/18 10:00 12/19/18 10:00 12/19/18 10:00 12/19/18 10:00 12/19/18 10:00 Oxygen Devices in Use Now: None Appearance: seated, finishing breakfast, NAD. Eyes: No Scleral Icterus, PERRLA Ears/Nose/Mouth/Throat: NL Teeth, Lips, Gums, Clear Oropharnyx, Mucous Membranes Moist Neck: NL Appearance and Movements; NL JVP, Trachea Midline Respiratory: - - somewhat distant. Cardiovascular: - - S1, S2, regular with frequent extrasystoles. Extremities: No Edema Skin: No Rash or Ulcers Neurological: Alert and Oriented x 3 Lines/Tubes/Other Access: Clean, Dry and Intact Peripheral IV Laboratory Results: 12/18/18 08:57 12/19/18 06:03 INR (Anticoag Therapy) 1.15 (0.82-1.09) H 12/15/18 05:39 APTT 27.6 seconds (26.0-38.0) 12/14/18 09:08 Total Bilirubin 1.50 mg/dL (0.2-1.0) H 12/18/18 05:29 Direct Bilirubin 0.60 mg/dL (0.03-0.18) H 12/15/18 05:39 Indirect Bilirubin 2.3 mg/dL (0.3-1.0) H 12/15/18 05:39 AST 28 U/L (13-39) 12/18/18 05:29 ALT 27 U/L (7-52) 12/18/18 05:29 Alkaline Phosphatase 101 U/L (34-104) 12/18/18 05:29 CK-MB (CK-2) 8.4 ng/mL (0.6-6.3) H 12/14/18 09:08 B-Natriuretic Peptide 288 pg/mL (<=100) H 12/14/18 09:08 Total Protein 6.0 g/dL (6.4-8.9) L 12/18/18 05:29 Albumin 3.8 g/dL (3.2-5.2) 12/18/18 05:29 Globulin 2.2 g/dL (2-4) 12/18/18 05:29 Albumin/Globulin Ratio 1.7 (1-3) 12/18/18 05:29 Triglycerides 83 mg/dL 12/15/18 05:39 Cholesterol 150 mg/dL 12/15/18 05:39 LDL Cholesterol 55 mg/dL 12/15/18 05:39 HDL Cholesterol 78.5 mg/dL 12/15/18 05:39 TSH 2.25 mcIU/mL (0.34-5.60) 12/14/18 09:08 12/14/18 12/14/18 12/14/18 09:08 14:33 20:00 Troponin I 0.03 0.04 H* 0.03 Diagnostic Imaging: Patient Name: JATINDER RBASHER Medical Record#: [id number] Ordering Physician: Roberto Wood MD Acct.#: [id number] : 1950 Age: 68 Sex: M Location: EMERGENCY DEPARTMENT Exam Date: 12/14/18858 ADM Status: PRE ER Order Information: CHEST AP OR PORT Accession Number: [id number] CPT: 09826 Indication: Palpitations. Single frontal view of the chest performed at 0904 hours was reviewed. Comparison is made with previous exam dated December 04, 2016. No mediastinal shift is noted. Heart is of normal size and configuration. Lung [place] appear clear. IMPRESSION: NO ACTIVE CARDIOPULMONARY DISEASE IS NOTED. <Electronically signed by Elab Javier MD in OV> 12/14/18925 Dictated By: Elba Javier MD Dictated Date/Time: 12/14/18922 Transcribed Date/Time: 12/14/18922 Copy to: CC:Kristine Hess GENERAL SURGERY PHYSICIAN ASSISTANT; Roberto Wood MD Imaging - [facility] Imaging - [place] [facility] [address] [address] ph ([phone]) ph ([phone]) ph ([phone]) This report is only to be considered final once signed by the Provider(s) as displayed in the "<Electronically Signed by >" field (s). Absence of a signature indicates the report is in a draft status and still needs to be finalized. In the event this document was created by someone other than the signing Provider, the individual initiating the document will be listed in the "Entered by:" or "Dictated by:" [place]. 1 of EKG Data: Telemetry 12/18/18-12/19/18 reviewed. NSR rate 80-90s with frequent PACs Assessment/Plan 68 you alcoholic presented with afib, RVR, not aware of palpitations, was aware of SOB, fatigue. Back in NSR, but frequent PAC's on BB and diltiazem. #1 h/o PAF; -Anticoagulant recommended for CVA prevention unless fall risk/EtOH places pt's risk too high. Currently on Lovenox, consider initiation of Eliquis. -I increased Diltiazem short acting for PAC's, HTN. As he is withdrawing, requirements may change. -Continue to replete electrolytes. - I discussed PAF risks, the importance of avoiding EtOH for reduced risk of AF and for reduced risks of falls on blood thinners. He states he will stop drinking. NOTE: He would not be a candidate for Xarelto due to h/o cirrhosis. Coumodin could be problamatic with EtOH as well. Troponin elevation: -Likely from PAF, outpatinet stress test can be done. #4 Disposition pending course. will d/w Dr. Poon attending physician .
[2018-12-19] MEDS: Enoxaparin(*) 60 MG/0.6 ML SYR SUBCUT SCH (11:24)
[2018-12-19 11:53] VITALS: BP 151/90
[2018-12-19] MEDS ORDERED: Diltiazem TAB* 60 MG PO SCH (13:00)
--- NOTE | 2018-12-20 22:44 | DS ---
CC: Kristine Hess NP; Dr. Edison Poon * DISCHARGE SUMMARY: DATE OF ADMISSION: 12/14/18 DATE OF DISCHARGE: 12/19/18 MY ATTENDING WHILE IN THE HOSPITAL: Dr. Pam Rodriguez.* (DICTATED BY SIOMARA COLEMAN) PRIMARY CARE PROVIDER: Kristine Hess NP OUTPATIENT SURVEY STATISTICIAN: Dr. Edison Poon. PRIMARY DISCHARGE DIAGNOSES: 1. Atrial fibrillation with rapid ventricular response. 2. Alcohol abuse. SECONDARY DISCHARGE DIAGNOSES: 1. Hypertension. 2. Alcoholic liver disease. 3. Hypertension. 4. Hyperlipidemia. STUDIES DONE WHILE IN THE HOSPITAL: EKG from 12/14/18 shows atrial fibrillation , rate of 158, QTc 470, normal axis, no ST segment elevation or depression. Chest x-ray read as no active cardiopulmonary disease. Repeat electrocardiogram shows atrial flutter, rate of 79, QTc of 464. Repeat EKGs show transition to normal sinus rhythm, PACs and persistent normal sinus rhythm with PACs. MEDICATIONS AT DISCHARGE: 1. Xanax 0.5 mg p.o. b.i.d. as needed. 2. Gabapentin 900 mg p.o. t.i.d. 3. Folic acid 1 mg p.o. daily. 4. Multivitamin 1 tab p.o. daily. 5. Thiamine 100 mg p.o. daily. 6. Aspirin 81 mg p.o. daily. 7. Xanax 0.5 mg p.o. at bedtime as needed. 8. Ensure Plus daily. 9. Metoprolol succinate 100 mg p.o. daily. 10. Magnesium oxide 400 mg p.o. daily. 11. Diltiazem 100 mg p.o. at bedtime. 12. Apixaban 5 mg p.o. b.i.d. 13. Potassium chloride 20 mEq p.o. daily. 14. Thiamine 100 mg p.o. daily. New medications at discharge: 1. Eliquis. 2. Diltiazem. 3. Magnesium. 4. Metoprolol succinate. 5. Potassium chloride. 6. Thiamine. Medications discontinued at discharge: Metoprolol succinate 100 mg p.o. daily. HOSPITAL COURSE: The patient is a 68-year-old male with past medical history significant for the above, who presented to the emergency department after significant alcohol abuse with palpitations, was found to have lactic acidosis and severe AFib with RVR. The patient was started on a Cardizem drip, his lactic acidosis normalized with fluids. The patient has slightly elevated troponin, slightly elevated BNP. The patient had abnormal LFTs consistent with alcohol abuse. The patient had no other signs of infection. The patient was admitted to the hospital. The patient's rate was controlled on diltiazem drip. The patient, however, did show signs of alcohol withdrawal and significant hypomagnesium and hypokalemia, which were repleted. The patient was seen in consultation by Dr. Alondra Fernandez of Cardiology, who recommended to continue the patient's metoprolol in transition to Cardizem p.o., which he tolerated well; however, the patient has got worsening agitation from alcohol withdrawal transitioned to the ICU, a Precedex drip. The patient was able to be weaned off of this relatively quickly and be transitioned back to Ativan IV as needed. The patient's atrial fibrillation on 12/17/18 converted spontaneously before he was scheduled for a transesophageal echocardiogram cardioversion. The patient continued to improve with regard to his symptoms of withdrawal. The patient was able to be transitioned out of the ICU. The patient was transitioned to long acting diltiazem. The patient's blood pressure , heart rate, oxygen saturations and alcohol withdrawal symptoms were all well controlled on a day of his discharge and he is stable enough to discharge to home on 12/19/18. PHYSICAL EXAM ON THE DAY OF DISCHARGE: General: The patient is a 68-year-old female who appears stated age, sitting comfortably on bed, in no acute distress. Vital Signs: At the time of discharge, temperature 98.1, pulse rate 68, respiratory rate 16, oxygen saturation 97% on room air, blood pressure 161/ 90. HEENT: Head: Normocephalic, atraumatic. Sclerae anicteric. No conjunctival injection. Nasal mucosa moist. Oral mucosa moist. No pharyngeal erythema, discharge, or exudate. Neck: Supple, nontender. No lymphadenopathy. No carotid bruits auscultated. No JVD. Cardiac: Regular rate and rhythm. No clicks, murmurs, gallops, or rubs. Pulses are 2+ in the bilateral dorsalis pedis, posterior tibialis, and radial areas. Respiratory: Clear to auscultation bilaterally with no wheezes, rales or rhonchi. Good air exchange bilaterally. Abdomen: Soft, nontender, nondistended. Bowel sounds present and normoactive in all 4 quadrants. No hepatosplenomegaly. No abdominal bruits auscultated. No hepatojugular reflux. Skin: Clean, dry and intact. No rashes. Neuro: Cranial nerves II through XII intact. No focal deficits. Alert and oriented x3. No tremor. DISCHARGE PLAN BY PROBLEM: 1. AFib with RVR. The patient is currently in normal sinus rhythm and is on a rate controlling medications for any paroxysmal atrial fibrillation. He might have to be rate controlled. The patient is not a candidate for rhythm control at this time given his frequent alcohol abuse. If the patient has persistence of sobriety, he can follow up with his primary care provider and possibly placed on an antiarrhythmic. He continues to have significant burden of atrial fibrillation. The patient will have potassium and magnesium supplementation to help maintain sinus rhythm. The patient to follow up with his legal word processor within 1 month. The patient is on diltiazem and metoprolol as above. The patient to check his blood pressure twice daily for at least the first week and take these values to his primary care provider as his blood pressure is anticipated to decrease as he get further away from his alcohol withdrawal. The patient was instructed to call his primary care provider or legal word processor for any hypertensive readings or symptoms of orthostasis. 2. Alcohol abuse. The patient has insist that he is going to remain sober. The patient will follow up with his primary care provider for assistance with the patient's alcoholic liver disease including his elevated bilirubin or decreasing during his hospitalization. The patient's albumin, INR, other signs of synthetic liver functions were normal. The patient does have a macrocytic anemia and low platelets likely related to alcohol use. These should be trended outpatient through his primary care provider. 3. Hypertension. The patient is on metoprolol and diltiazem. The patient's blood pressure was slightly elevated. He is in the hospital. The patient should monitor for hypotension. Follow up with his primary care provider for ongoing management of his blood pressure. 4. Hyperlipidemia. The patient is on medications for this. The patient's LDL cholesterol while in the hospital was 55. The patient does not need to be on a statin for this. DISPOSITION: Home. CONDITION: Stable. TIME SPENT: Approximately 60 minutes was spent on the discharge of this patient , 30 of which was spent [id number] with the patient obtaining history and physical and discussing treatment plan. SIOMARA COLEMAN [id number]/[facility] #: [id number] BREANNA
== END 2018-12-19 14:10 | disposition home or self-care (01) | DRG 309 ==
LOC: ED 08:43 → ICU 13:59 → MEDTELE 12-18 12:54
PROVIDERS: ADMIT Internal Medicine; ATTEND Internal Medicine
DX: I48.0 Paroxysmal atrial fibrillation (principal); E87.2 Acidosis; F10.231 Alcohol dependence with withdrawal delirium; F10.251 Alcohol dependence with alcohol-induced psychotic disorder with hallucinations; K70.9 Alcoholic liver disease, unspecified; I10 Essential (primary) hypertension; R25.1 Tremor, unspecified; E83.42 Hypomagnesemia; E87.6 Hypokalemia; Z66 Do not resuscitate; E78.5 Hyperlipidemia, unspecified; E86.0 Dehydration; F12.10 Cannabis abuse, uncomplicated; R74.8 Abnormal levels of other serum enzymes; R10.13 Epigastric pain; Y90.1 Blood alcohol level of 20-39 mg/100 ml; F17.210 Nicotine dependence, cigarettes, uncomplicated; D64.9 Anemia, unspecified; Z79.899 Other long term (current) drug therapy
CPT/HCPCS: 36415; 71045; 80048; 80053; 80061; 80076; 80320; 81003; 81015; 82272; 82330; 82550; 82553; 83605; 83690; 83735; 83880; 84100; 84443; 84484; 85025; 85060; 85610; 85730; 87040; 87077; 87086; 87205; 87641; 90686; 93005; 96365; 96375; 99285; A9270-GY; G0480; G8978-GP-CI; G8978-GP-CJ; G8979-GP-CI; G8980-GP-CI; J1200; J1630; J1650; J2060; J2405; J3411; J3475; J3490

== ENCOUNTER 2021-10-16 16:11 | Inpatient (IN) ==
[2021-10-16] MEDS ORDERED: Morphine 4 MG/ML VIAL (1 ml) IV ONE ×2 (16:20→20:34)
[2021-10-16] MEDS ORDERED: Lactated Ringers 1000 ml BAG 1,000 ML IV ONE (16:20)
[2021-10-16] MEDS ORDERED: Ondansetron 4 mg VIAL 2 MG/ML 2 ml VIAL IV ONE ×2 (16:21→20:34)
[2021-10-16 17:01] LABS: INR 2.04 (0.89-1.11)
[2021-10-16 17:04] LABS: ABS Basophils 0.1 10^3/ul (0-0.2); ABS Lymphocytes 0.8 10^3/ul (1.0-4.8); ABS Monocytes 0.7 10^3/ul (0-0.8); ABS Neutrophils 9.5 10^3/ul (1.5-7.7); Eosinophil % 0.4 %; Hematocrit 43 % (42-52); Hemoglobin 14.5 g/dL (14.0-18.0); Lymphocyte % 6.8 %; Mean Corpuscular HGB Conc 34 g/dL (31-36); Mean Corpuscular Hemoglobin 36 pg (27-31); Mean Corpuscular Volume 106 fL (80-94); Mean Platelet Volume 9.4 fL (7.4-10.4); Nucleated Red Blood Cells % 0.1; Platelet Count 205 10^3/uL (150-450); Red Blood Count 4.07 10^6 /uL (4.18-5.48); Red Cell Distribution Width 15 % (10-15); White Blood Count 11.1 10^3/uL (3.5-10.8)
[2021-10-16 17:40] LABS: Albumin 4.2 g/dL (3.2-5.2); Albumin/Globulin Ratio 1.4 (1-3); C Reactive Protein 4.17 mg/L (<8.01); Calcium 9.7 mg/dL (8.6-10.3); Direct Bilirubin 0.3 mg/dL (0.03-0.18); Globulin 2.9 g/dL (2-4); Indirect Bilirubin 1.1 mg/dL (0.3-1.0); Magnesium 1.9 mg/dL (1.9-2.7); Potassium 4.5 mmol/L (3.5-5.0); Total Bilirubin 1.4 mg/dL (0.2-1.0); Total Protein 7.1 g/dL (6.4-8.9); eGFR CKD-EPI 91.4 (>60)
[2021-10-16] MEDS ORDERED: Iohexol 350 (CONTRAST) 500 ML MDV IV ONE (17:44)
[2021-10-16 18:49] LABS: High Sensitivity Troponin 1 Hr 5 pg/mL (<20)
[2021-10-16 19:40] LABS: Urine Appearance Clear; Urine Color Yellow; Urine Urobilinogen 1.0 (Negative) (Negative); Urine pH 7.5 (5.0-9.0)
[2021-10-16 19:41] LABS: Urine Bilirubin Negative (Negative); Urine Blood Negative (Negative); Urine Glucose Negative (Negative); Urine Ketones 2+ (40mg/dL) (Negative); Urine Nitrite Negative (Negative); Urine Protein Negative (Negative)
[2021-10-16] MEDS ORDERED: NS 0.9% 1000 ml BAG 1,000 ML IV SCH ×2 (23:00→23:13)
[2021-10-17] MEDS: Ondansetron 4 mg VIAL 2 MG/ML 2 ml VIAL IV PRN ×3 (02:44→14:55)
[2021-10-17 05:44] LABS: ABS Basophils 0.1 10^3/ul (0-0.2); ABS Eosinophils 0.1 10^3/ul (0-0.6); ABS Monocytes 0.9 10^3/ul (0-0.8); ABS Neutrophils 8.7 10^3/ul (1.5-7.7); Eosinophil % 0.7 %; Hematocrit 40 % (42-52); Hemoglobin 13.9 g/dL (14.0-18.0); Lymphocyte % 9.1 %; Mean Corpuscular HGB Conc 35 g/dL (31-36); Mean Corpuscular Hemoglobin 36 pg (27-31); Mean Corpuscular Volume 105 fL (80-94); Mean Platelet Volume 8.9 fL (7.4-10.4); Nucleated Red Blood Cells % 0.1; Platelet Count 188 10^3/uL (150-450); Red Blood Count 3.82 10^6 /uL (4.18-5.48); Red Cell Distribution Width 15 % (10-15); White Blood Count 10.8 10^3/uL (3.5-10.8)
[2021-10-17 06:12] LABS: Calcium 8.8 mg/dL (8.6-10.3); Potassium 4.2 mmol/L (3.5-5.0); eGFR CKD-EPI 92.8 (>60)
[2021-10-17 06:50] LABS: HDL Cholesterol 40.7 mg/dL
[2021-10-17] MEDS: Aspirin EC 81 mg TAB.EC (enteric coated) PO SCH (09:19)
[2021-10-17] MEDS ORDERED: Thiamine 100 MG/ML 2 ml VIAL (200 mg) IM ONE (09:19)
[2021-10-17] MEDS ORDERED: Multivitamins/Minerals TAB PO SCH (10:00)
[2021-10-17] MEDS ORDERED: HYDROmorphone 0.5 MG/0.5 ML SYRINGE IV SLOW PU PRN (10:47)
[2021-10-17] MEDS ORDERED: HYDROmorphone 0.5 MG/0.5 ML SYRINGE ONE (10:50)
[2021-10-17] MEDS: HYDROmorphone 0.5 MG/0.5 ML SYRINGE IV SLOW PU PRN ×3 (11:00→21:15)
[2021-10-17 12:50] LABS: Albumin 3.9 g/dL (3.2-5.2); Albumin/Globulin Ratio 1.4 (1-3); Direct Bilirubin 0.2 mg/dL (0.03-0.18); Globulin 2.8 g/dL (2-4); Indirect Bilirubin 1.1 mg/dL (0.3-1.0); Total Bilirubin 1.3 mg/dL (0.2-1.0); Total Protein 6.7 g/dL (6.4-8.9)
[2021-10-17] MEDS ORDERED: Enoxaparin 60 MG/0.6 ML SYR SUBCUT SCH ×2 (13:00→22:00)
[2021-10-17] MEDS ORDERED: NS 0.9% 1000 ml BAG 1,000 ML IV SCH (15:40)
[2021-10-17] MEDS: Metoprolol Tartrate 5 mg VIAL 5 ml VIAL (1 mg/ml) IV PRN (23:18)
[2021-10-18] MEDS: HYDROmorphone 0.5 MG/0.5 ML SYRINGE IV SLOW PU PRN ×2 (01:39→05:54)
[2021-10-18] MEDS: Ondansetron 4 mg VIAL 2 MG/ML 2 ml VIAL IV PRN (04:11)
[2021-10-18 04:50] LABS: ABS Basophils 0.1 10^3/ul (0-0.2); ABS Eosinophils 0.1 10^3/ul (0-0.6); ABS Monocytes 0.8 10^3/ul (0-0.8); Eosinophil % 1.2 %; Hematocrit 38 % (42-52); Hemoglobin 13.1 g/dL (14.0-18.0); Lymphocyte % 12.7 %; Mean Corpuscular HGB Conc 35 g/dL (31-36); Mean Corpuscular Hemoglobin 36 pg (27-31); Mean Corpuscular Volume 104 fL (80-94); Mean Platelet Volume 8.9 fL (7.4-10.4); Nucleated Red Blood Cells % 0.1; Platelet Count 171 10^3/uL (150-450); Red Blood Count 3.64 10^6 /uL (4.18-5.48); Red Cell Distribution Width 15 % (10-15); White Blood Count 7.9 10^3/uL (3.5-10.8)
[2021-10-18 05:24] LABS: Albumin 3.5 g/dL (3.2-5.2); Albumin/Globulin Ratio 1.3 (1-3); Calcium 8.9 mg/dL (8.6-10.3); Globulin 2.6 g/dL (2-4); Potassium 4.5 mmol/L (3.5-5.0); Total Bilirubin 1.3 mg/dL (0.2-1.0); Total Protein 6.1 g/dL (6.4-8.9); eGFR CKD-EPI 91.1 (>60)
[2021-10-18] MEDS: Aspirin EC 81 mg TAB.EC (enteric coated) PO SCH (10:34)
[2021-10-18] MEDS ORDERED: Gadobenate (CONTRAST) 529 MG/ML 10 ML SDV IV ONE (18:09)
[2021-10-19] MEDS: Ondansetron 4 mg VIAL 2 MG/ML 2 ml VIAL IV PRN (06:15)
[2021-10-19 06:24] LABS: ABS Basophils 0.1 10^3/ul (0-0.2); ABS Eosinophils 0.2 10^3/ul (0-0.6); ABS Lymphocytes 0.7 10^3/ul (1.0-4.8); ABS Neutrophils 6.5 10^3/ul (1.5-7.7); Eosinophil % 1.8 %; Hematocrit 38 % (42-52); Hemoglobin 13.6 g/dL (14.0-18.0); Lymphocyte % 8.5 %; Mean Corpuscular HGB Conc 36 g/dL (31-36); Mean Corpuscular Hemoglobin 38 pg (27-31); Mean Corpuscular Volume 105 fL (80-94); Platelet Count 162 10^3/uL (150-450); Red Cell Distribution Width 14 % (10-15); White Blood Count 8.4 10^3/uL (3.5-10.8)
[2021-10-19 06:48] LABS: Albumin 3.8 g/dL (3.2-5.2); Albumin/Globulin Ratio 1.5 (1-3); Globulin 2.5 g/dL (2-4); Potassium 3.7 mmol/L (3.5-5.0); Total Bilirubin 1.6 mg/dL (0.2-1.0); Total Protein 6.3 g/dL (6.4-8.9); eGFR CKD-EPI 91.4 (>60)
[2021-10-19] MEDS: Aspirin EC 81 mg TAB.EC (enteric coated) PO SCH (09:53)
[2021-10-19] MEDS ORDERED: Midazolam 10 mg/10 ml VIAL 1 mg/ml 10 ml VIAL (10 mg) ONE (14:10)
[2021-10-19] MEDS ORDERED: fentaNYL 100 mcg/2 ml 50 MCG/ML VIAL ONE (14:10)
[2021-10-19] MEDS: Metoprolol Tartrate 5 mg VIAL 5 ml VIAL (1 mg/ml) IV PRN (20:32)
[2021-10-19 21:27] LABS: Magnesium 1.8 mg/dL (1.9-2.7)
[2021-10-20] MEDS: Aspirin EC 81 mg TAB.EC (enteric coated) PO SCH (08:33)
[2021-10-20 09:01] LABS: ABS Basophils 0.1 10^3/ul (0-0.2); ABS Eosinophils 0.1 10^3/ul (0-0.6); ABS Lymphocytes 0.6 10^3/ul (1.0-4.8); ABS Monocytes 0.7 10^3/ul (0-0.8); ABS Neutrophils 5.3 10^3/ul (1.5-7.7); Eosinophil % 1.4 %; Hematocrit 40 % (42-52); Hemoglobin 14.2 g/dL (14.0-18.0); Lymphocyte % 8.3 %; Mean Corpuscular HGB Conc 36 g/dL (31-36); Mean Corpuscular Hemoglobin 37 pg (27-31); Mean Corpuscular Volume 105 fL (80-94); Mean Platelet Volume 9.3 fL (7.4-10.4); Nucleated Red Blood Cells % 0.1; Platelet Count 161 10^3/uL (150-450); Red Blood Count 3.78 10^6 /uL (4.18-5.48); Red Cell Distribution Width 15 % (10-15); White Blood Count 6.8 10^3/uL (3.5-10.8)
[2021-10-20 09:30] LABS: Albumin/Globulin Ratio 1.4 (1-3); Calcium 9.4 mg/dL (8.6-10.3); Globulin 2.8 g/dL (2-4); Potassium 4.1 mmol/L (3.5-5.0); Total Bilirubin 1.8 mg/dL (0.2-1.0); Total Protein 6.8 g/dL (6.4-8.9); eGFR CKD-EPI 93.1 (>60)
[2021-10-20 15:53] VITALS: BP 122/72
== END 2021-10-20 17:25 | disposition home or self-care (01) | DRG 442 ==
LOC: ED 16:11 → EDHOLD 22:51 → SUATTDRO 22:51 → SSU 23:39
PROVIDERS: ADMIT Internal Medicine; ATTEND Surgery